=== PATIENT | female | born 1940 | race Caucasian/White ===

== ENCOUNTER → 2017-02-12 | Outpatient (CLI) | payer MEDICARE, BC ==
[~2017-02-12] MED LIST: /ALEN7SOL OR; /ONDA4TA OR; ACCU5TAB7 OR; AMBI5TAB OR; ASPI325T OR; CALCCHW12 OR; CARI350T OR; CLAR5CHW OR; COENZYME Q10 OR; CORE12.5 OR; CRES20TA PO; DEXI; DEXILANT OR; FERR325T3 PO; GLUC850T OR; INSULANT SC; ISOS30TA4 OR; LASI40TA OR; LEXAPRO PO; NIAS500T2 OR; SPIR25TA2 OR; SYNT75TA OR; TOPI100T OR; VIT D 2000 OR; ZANT150T OR; [UNRECOGNIZED DRUG - OTHER]
--- NOTE | 2017-02-12 14:58 | REP ---
REASON: Followup carotid arterial disease. COMPARISON: 08/22/2015 which showed less than 50% stenosis in the internal carotid artery bilaterally. Once again, there is echogenic material along the carotid arterial campbell, particularly the carotid bulb, essentially unchanged from the prior exam. Some of this echogenic material casts an acoustic shadow consistent with calcific deposition. RIGHT LEFT CCA systolic 70.8 cm/s 54.7 cm/s CCA diastolic 5.2 cm/s 7.9 cm/s ICA systolic 48.4 cm/s 59.9 cm/s ICA diastolic 10.8 cm/s 14.4 cm/s ICA/CCA ratio 0.68 1.10 Spectral wave form analysis shows mild bilateral internal carotid shadow spectral broadening status quo. Antegrade flow is seen in both vertebral arteries. IMPRESSION: Soft and calcified plaque formation again seen to cause less than 50% stenosis in the internal carotid artery bilaterally. According to the NASCET consensus criteria. Signed by Reagan Arriaza DO 02/12/2017 03:08 P
== END ==
LOC: M RAD 12:09
PROVIDERS: ATTEND Physician Assistant Medical
DX: I65.23 Occlusion and stenosis of bilateral carotid arteries (principal)

== ENCOUNTER → 2017-05-26 | Outpatient (REF) | payer MEDICARE, BC ==
[2017-05-29 00:07] LABS: Lyme Disease IgG/IgM Antibodie <0.91 ISR (0.00-0.90); Lyme Disease IgM Ab Quantitati <0.80 index (0.00-0.79)
== END ==
LOC: M LABDRAW1 15:47
PROVIDERS: ATTEND Orthopaedic Surgery
DX: S80.01XA Contusion of right knee, initial encounter (principal); X58.XXXA Exposure to other specified factors, initial encounter; Y92.89 Other specified places as the place of occurrence of the external cause; Y99.9 Unspecified external cause status; Y93.9 Activity, unspecified

== ENCOUNTER 2018-03-12 19:10 | Emergency (ER) | payer MEDICARE, BC ==
[2018-03-12] MEDS: OXYCODONE/APAP 5MG/325MG(BULK FOR ED) 1 TABLET PO (21:35)
[2018-03-12] MEDS: PERCOCET 5MG/325MG TAB PO (21:35)
== END 2018-03-12 22:42 | disposition home or self-care (01) ==
LOC: M ED 19:10
DX: S42.202A Unspecified fracture of upper end of left humerus, initial encounter for closed fracture (principal); S80.01XA Contusion of right knee, initial encounter; S50.311A Abrasion of right elbow, initial encounter; S80.211A Abrasion, right knee, initial encounter; W01.10XA Fall on same level from slipping, tripping and stumbling with subsequent striking against unspecified object, initial encounter; Y92.099 Unspecified place in other non-institutional residence as the place of occurrence of the external cause; Y93.9 Activity, unspecified; Y99.9 Unspecified external cause status; I50.9 Heart failure, unspecified; I25.2 Old myocardial infarction; E11.9 Type 2 diabetes mellitus without complications; I10 Essential (primary) hypertension; G43.909 Migraine, unspecified, not intractable, without status migrainosus; E78.5 Hyperlipidemia, unspecified; K21.9 Gastro-esophageal reflux disease without esophagitis; K31.84 Gastroparesis; Z87.891 Personal history of nicotine dependence; Z79.82 Long term (current) use of aspirin; Z79.84 Long term (current) use of oral hypoglycemic drugs; Z79.899 Other long term (current) drug therapy; Z88.1 Allergy status to other antibiotic agents; Z88.8 Allergy status to other drugs, medicaments and biological substances
CPT/HCPCS: 73030

== ENCOUNTER → 2019-06-29 | Outpatient (REF) | payer MEDICARE, BC ==
[~2019-06-29] MED LIST changes: -/ONDA4TA OR; +ACET-716 PO; +ASPI81TA26 PO; +CLOP75TA2; +CO Q100C10 PO; +DEXI60CA2; +ESCI20TA; +FENO160T10; +GABA-1171; +GABA-843 PO; +LEVO112T2; +LEXA1TAB PO; -LEXAPRO PO; +MAGN500T5 PO; +METF850T4; +NITR-67; +ONDA-1 OR; +PERC5TAB12 PO; +VICT18IN; +areds 2
[2019-06-29 18:18] LABS: APPEARANCE, URINE CLEAR (CLEAR); BACTERIA, URINE AUTO NEGATIVE (NEGATIVE); BILIRUBIN, URINE AUTO NEGATIVE (NEGATIVE); BLOOD, URINE BLOOD NEGATIVE (NEGATIVE); COLOR, URINE YELLOW (YELLOW); GLUCOSE, URINE (UA) AUTO NEGATIVE (NEGATIVE); KETONE, URINE AUTO TRACE mg/dL (NEGATIVE); LEUKOCYTE ESTERASE, URINE AUTO TRACE (NEGATIVE); NITRITE, URINE AUTO NEGATIVE (NEGATIVE); PROTEIN, URINE AUTO NEGATIVE (NEGATIVE); RBC, URINE AUTO 1 /HPF (0-3); SPECIFIC GRAVITY URINE AUTO 1.017 (1.002-1.035); SQUAMOUS EPITHELIAL CELL UR AU 0 /HPF (0-6); UROBILINOGEN, URINE AUTO 0.2 mg/dL (0.0-2.0); WBC, URINE AUTO 3 /HPF (0-3)
== END ==
LOC: M SMT 17:11
PROVIDERS: ATTEND Nurse Practitioner Family
DX: N39.0 Urinary tract infection, site not specified (principal); R32 Unspecified urinary incontinence
CPT/HCPCS: 51798; 81001; 87086; G0463

== ENCOUNTER → 2019-07-06 | Outpatient (REF) | payer MEDICARE, BC ==
[2019-07-06 19:27] LABS: APPEARANCE, URINE CLEAR (CLEAR); BACTERIA, URINE AUTO 1+ (NEGATIVE); BILIRUBIN, URINE AUTO NEGATIVE (NEGATIVE); BLOOD, URINE BLOOD NEGATIVE (NEGATIVE); COLOR, URINE YELLOW (YELLOW); GLUCOSE, URINE (UA) AUTO NEGATIVE (NEGATIVE); KETONE, URINE AUTO NEGATIVE (NEGATIVE); LEUKOCYTE ESTERASE, URINE AUTO NEGATIVE (NEGATIVE); NITRITE, URINE AUTO NEGATIVE (NEGATIVE); PROTEIN, URINE AUTO NEGATIVE (NEGATIVE); RBC, URINE AUTO 2 /HPF (0-3); SPECIFIC GRAVITY URINE AUTO 1.017 (1.002-1.035); SQUAMOUS EPITHELIAL CELL UR AU 0 /HPF (0-6); UROBILINOGEN, URINE AUTO 0.2 mg/dL (0.0-2.0); WBC, URINE AUTO 3 /HPF (0-3)
== END ==
LOC: M SMT 17:05
PROVIDERS: ATTEND Nurse Practitioner Family
DX: N39.0 Urinary tract infection, site not specified (principal); R32 Unspecified urinary incontinence

== ENCOUNTER → 2020-03-23 | Outpatient (CLI) | payer MEDICARE, BC ==
[2020-03-29 12:15] LABS: ANCA-ATYPICAL <1:20 titer (Neg:<1:20); ANTI DS-DNA AB Negative (Negative); ANTINUCLEAR ANTIBODIES DIRECT Negative (Negative); ASPERGILLUS FUMIGATUS AB Negative (Negative); AUREOBASIDIUM PULLULANS Negative (Negative); CYTOPLASMIC NEUTROP AB ANCA-C <1:20 titer (Neg:<1:20); MICROPOLYSPORA FAENI AB Negative (Negative); PERINUCLEAR AB ANCA-P <1:20 titer (Neg:<1:20); PIGEON SERUM AB Negative (Negative); RNP ANTIBODIES <0.2 AI (0.0-0.9); SJOGREN'S ANTI SS-A <0.2 AI (0.0-0.9); SJOGREN'S ANTI SS-B <0.2 AI (0.0-0.9); SMITH ANTIBODIES <0.2 AI (0.0-0.9); THERMOACTINOMYCES SACCHARI Negative (Negative); THERMOACTINOMYCES VULGARIS Negative (Negative)
== END ==
LOC: M PLALAB 11:50
PROVIDERS: ATTEND Internal Medicine Pulmonary Disease
DX: R91.8 Other nonspecific abnormal finding of lung field (principal)

== ENCOUNTER → 2020-06-27 | Outpatient (REF) | payer MEDICARE, BC ==
[2020-06-27 14:53] LABS: CALCIUM LEVEL 8.3 MG/DL (8.8-10.2); CREATININE FOR GFR 1.32 MG/DL (0.55-1.30); GLOMERULAR FILTRATION RATE 41.4 (>39); POTASSIUM SERUM 4.8 MEQ/L (3.5-5.1)
== END ==
LOC: M PLALAB 12:10
PROVIDERS: ATTEND Physician Assistant
DX: I50.42 Chronic combined systolic (congestive) and diastolic (congestive) heart failure (principal)

== ENCOUNTER → 2021-02-09 | Outpatient (CLI) | payer MEDICARE, BC ==
[~2021-02-09] MED LIST changes: -ESCI20TA; +ESCI20TA16; +GABA-282 PO; -GABA-843 PO
--- NOTE | 2021-02-09 13:14 | REPPI ---
INDICATION: ABNORMAL LUNG FINDING. COMPARISON: 01/17/2016 the latest prior TECHNIQUE: PA and lateral FINDINGS: Since the last examination, a dual chamber bipolar pacemaker device has been placed. The leads appear appropriate and contiguous. The cardiomediastinal silhouette is essentially unchanged. Note is again made of previous median sternotomy. The heart is not enlarged. There is chronic left CP angle blunting. No acute patchy parenchymal opacities or pleural effusions have developed. There is a lower thoracic vertebral body compression deformity and when compared to the latest prior lateral view of the chest which is dated 01/17/2016 this appears stable. IMPRESSION: No acute cardiopulmonary disease. Findings as described above. <Electronically signed by Reagan Arriaza > 02/09/21 [id number]
== END ==
LOC: M PLAIMG 12:52
PROVIDERS: ATTEND Internal Medicine Pulmonary Disease
DX: R91.8 Other nonspecific abnormal finding of lung field (principal)

== ENCOUNTER → 2021-04-02 | Outpatient (CLI) | payer MEDICARE, BC ==
--- NOTE | 2021-04-02 16:42 | REPVR ---
PROCEDURE INFORMATION: Exam: CT Head Without Contrast Exam date and time: 04/02/2021 3:54 PM Age: 80 years old Clinical indication: Pain; Headache; Additional info: Repeated falls, cervicalgia, other cerb infarc TECHNIQUE: Imaging protocol: Computed tomography of the head without contrast. Radiation optimization: All CT scans at this facility use at least one of these dose optimization techniques: automated exposure control; mA and/or kV adjustment per patient size (includes targeted exams where dose is matched to clinical indication); or iterative reconstruction. COMPARISON: CT Head without contrast 03/12/2018 7:52 PM FINDINGS: Brain: There is no evidence of intracranial bleed. There is moderate diffuse atrophy. There is greater atrophy the left frontal lobe and right occipital lobe. The hardy-white differentiation appears preserved. Cerebral ventricles: No ventriculomegaly. Paranasal sinuses: Clear paranasal sinuses. Mastoid air cells: Clear mastoid air cells. Bones/joints: There is no evidence of acute fracture. Soft tissues: Unremarkable. IMPRESSION: Moderate atrophy. Electronically signed by: Chirag Egan On 04/02/2021 16:42:15 PM
--- NOTE | 2021-04-02 16:50 | REPVR ---
PROCEDURE INFORMATION: Exam: CT Cervical Spine Without Contrast Exam date and time: 04/02/2021 3:54 PM Age: 80 years old Clinical indication: Neck pain; Additional info: Repeated falls, cervicalgia, other cerb infarc TECHNIQUE: Imaging protocol: Computed tomography images of the cervical spine without contrast. Radiation optimization: All CT scans at this facility use at least one of these dose optimization techniques: automated exposure control; mA and/or kV adjustment per patient size (includes targeted exams where dose is matched to clinical indication); or iterative reconstruction. COMPARISON: No relevant prior studies available. FINDINGS: Vertebrae: The cervical vertebra and facet joints appear in alignment. The there is no evidence of fracture. There is a screw and plate device C5-C6 appearing intact. There is a moderate posterior disc osteophyte C4-C5 causing moderate impression on the Soft tissues: There is no evidence of soft tissue swelling. Lungs: Lung apices are normal. IMPRESSION: No evidence of fracture. Electronically signed by: Chirag Egan On 04/02/2021 16:50:49 PM
== END ==
LOC: M RAD 15:34
PROVIDERS: ATTEND Physician Assistant Medical
DX: M54.2 Cervicalgia (principal); M47.892 Other spondylosis, cervical region; R29.6 Repeated falls

== ENCOUNTER → 2021-09-17 | Outpatient (REF) | payer MEDICARE, BC ==
[~2021-09-17] MED LIST changes: +AJOV225I SC; +BISO5TAB14 PO; +CARV6.25 PO; +COLA100C5 PO; +DEXI60CA2 PO; +ENTR1TAB PO; +FENO160T10 PO; +GABA-1171 PO; +LOVE1INJ SC; +METF-838 PO; +METF850T4 PO; +METO5TAB2 PO; +MIRA1POW3 PO; +MYRB50TA PO; +PERCOCET PO; +PLAV1TAB2 PO; +PRESCAP PO; +ROSU20TA5 PO; +SENN18TA PO; +SPIR-10 PO; +SYNT112T2 PO; +TOPI25TA10 PO; +TORS20TA2 PO; +TRAM50TA2 PO; +VICT18IN2 SC; +ZOLO100T PO
[2021-09-17 14:06] LABS: APPEARANCE, URINE MANUAL CLOUDY (CLEAR); COLOR, URINE MANUAL ORANGE (YELLOW); GLUCOSE, URINE (UA) MANUAL OBSCURED mg/dL (NEGATIVE); PROTEIN, URINE MANUAL OBSCURED mg/dL (NEGATIVE)
[2021-09-17 14:07] LABS: BILIRUBIN, URINE MANUAL OBSCURED (NEGATIVE); BLOOD URINE MANUAL POSITIVE (NEGATIVE); KETONE, URINE MANUAL OBSCURED mg/dL (NEGATIVE); LEUKOCYTE ESTERASE, URINE MAN POSITIVE (NEGATIVE); NITRITE, URINE MANUAL OBSCURED (NEGATIVE); UROBILINOGEN, URINE MANUAL OBSCURED mg/dl (NORMAL)
[2021-09-17 14:16] LABS: BACTERIA, URINE LARGE AMOUNT; HYALINE CAST, URINE NONE SEEN /lpf (0-1); SQUAMOUS EPITHELIAL CELL URINE NONE SEEN /hpf (SMALL AMT)
== END ==
LOC: M SMT 13:16
PROVIDERS: ATTEND Nurse Practitioner Women's Health
DX: R30.0 Dysuria (principal)

== ENCOUNTER → 2021-09-26 | Outpatient (REF) | payer MEDICARE, BC ==
[2021-09-26 13:53] LABS: APPEARANCE, URINE CLEAR (CLEAR); BACTERIA, URINE AUTO NEGATIVE (NEGATIVE); BILIRUBIN, URINE AUTO NEGATIVE (NEGATIVE); BLOOD, URINE BLOOD NEGATIVE (NEGATIVE); COLOR, URINE YELLOW (YELLOW); GLUCOSE, URINE (UA) AUTO NEGATIVE (NEGATIVE); KETONE, URINE AUTO TRACE mg/dL (NEGATIVE); LEUKOCYTE ESTERASE, URINE AUTO NEGATIVE (NEGATIVE); NITRITE, URINE AUTO NEGATIVE (NEGATIVE); PROTEIN, URINE AUTO NEGATIVE (NEGATIVE); RBC, URINE AUTO 0 /HPF (0-3); SPECIFIC GRAVITY URINE AUTO 1.024 (1.002-1.035); SQUAMOUS EPITHELIAL CELL UR AU 0 /HPF (0-6); WBC, URINE AUTO 2 /HPF (0-3)
== END ==
LOC: M SMT 13:18
PROVIDERS: ATTEND Nurse Practitioner Women's Health
DX: R30.0 Dysuria (principal)

== ENCOUNTER → 2021-10-02 | Outpatient (CLI) | payer MEDICARE, BC | LOC: M PLAIMG 11:09 | PROVIDERS: ATTEND Physician Assistant | DX: S72.115A Nondisplaced fracture of greater trochanter of left femur, initial encounter for closed fracture (principal); M85.852 Other specified disorders of bone density and structure, left thigh ==

== ENCOUNTER 2021-10-05 09:08 | Inpatient (IN) | payer MEDICARE, BC ==
[~2021-10-05] VITALS: Ht 154.9 cm; Wt 57.2 kg
[~2021-10-05 09:08] MED LIST changes: -AJOV225I SC; -BISO5TAB14 PO; -CARV6.25 PO; -COLA100C5 PO; -DEXI60CA2 PO; -ENTR1TAB PO; -FENO160T10 PO; -GABA-1171 PO; -LOVE1INJ SC; -METF-838 PO; -METF850T4 PO; -METO5TAB2 PO; -MIRA1POW3 PO; -MYRB50TA PO; -PERCOCET PO; -PLAV1TAB2 PO; -PRESCAP PO; -ROSU20TA5 PO; -SENN18TA PO; -SPIR-10 PO; -SYNT112T2 PO; -TOPI25TA10 PO; -TORS20TA2 PO; -TRAM50TA2 PO; -VICT18IN2 SC; -ZOLO100T PO
[2021-10-05] MEDS ORDERED: ONDANSETRON 4MG/2ML VIAL IV ONE (09:50)
[2021-10-05] MEDS ORDERED: NS 1,000 ML IV SCH (09:50)
[2021-10-05] MEDS ORDERED: MORPHINE 2 MG/ML 1ML VIAL (J2270) IV PRN (09:50)
[2021-10-05 10:33] LABS: BASO % 0.4 % (0.0-1.0); EOS # 0.1 10^3/uL (0.0-0.5); EOS % 1.1 % (0.0-3.0); HEMATOCRIT 38.3 % (36.0-47.0); HEMOGLOBIN 12.1 g/dl (12.0-15.5); LYMPH # 0.6 10^3/uL (1.5-5.0); MEAN CORPUSCULAR HEMOGLOBIN 31.3 pg (27.0-33.0); MEAN CORPUSCULAR HGB CONC 31.6 g/dl (32.0-36.5); MONO # 0.5 10^3/uL (0.0-0.8); MONO % 4.6 % (2.0-8.0); NEUTROPHILS # 8.5 10^3/uL (1.5-8.5); NEUTROPHILS % 87.4 % (36.0-66.0); PLATELET COUNT, AUTOMATED 256 10^3/uL (150-450); RED BLOOD COUNT 3.87 10^6/uL (4.00-5.40); WHITE BLOOD COUNT 9.7 10^3/uL (4.0-10.0)
[2021-10-05 10:57] LABS: ALBUMIN 2.8 GM/DL (3.2-5.2); BILIRUBIN,DIRECT 0.1 MG/DL (0.0-0.2); BILIRUBIN,TOTAL 0.5 MG/DL (0.2-1.0); CALCIUM LEVEL 8.6 MG/DL (8.8-10.2); CREATININE FOR GFR 1.23 MG/DL (0.55-1.30); GLOMERULAR FILTRATION RATE 44.7 (>32); POTASSIUM SERUM 5.1 MEQ/L (3.5-5.1)
[2021-10-05 11:17] LABS: RSV AMPLIFICATION NEGATIVE (NEGATIVE)
[2021-10-05] MEDS ORDERED: BISO5TAB14 PO (11:46)
[2021-10-05] MEDS ORDERED: ZOLO100T PO (11:46)
[2021-10-05] MEDS ORDERED: TORS20TA2 PO (11:46)
[2021-10-05] MEDS ORDERED: ENTR1TAB PO (11:46)
[2021-10-05] MEDS ORDERED: AJOV225I SC (11:46)
[2021-10-05] MEDS ORDERED: MYRB50TA PO (11:46)
[2021-10-05] MEDS ORDERED: GABA-1171 PO (11:46)
[2021-10-05] MEDS ORDERED: METO5TAB2 PO (11:46)
[2021-10-05] MEDS ORDERED: VICT18IN2 SC (11:46)
[2021-10-05] MEDS ORDERED: ROSU20TA5 PO (11:46)
[2021-10-05] MEDS ORDERED: SPIR-10 PO (11:46)
[2021-10-05] MEDS ORDERED: SYNT112T2 PO (11:46)
[2021-10-05] MEDS ORDERED: DEXI60CA2 PO (11:46)
[2021-10-05] MEDS ORDERED: PLAV1TAB2 PO (11:46)
[2021-10-05] MEDS ORDERED: TRAM50TA2 PO (11:46)
[2021-10-05] MEDS ORDERED: TOPI25TA10 PO (11:46)
[2021-10-05] MEDS ORDERED: METF850T4 PO (11:46)
--- NOTE | 2021-10-05 13:01 | HPEPDOC ---
[facility] Medical History & Physical Date of Admission Oct 05, 2021 Date of Service: Oct 05, 2021 Attending Physician: Lynette Reyes MD History and Physical CHIEF COMPLAINT: Increasing left hip pain HISTORY OF PRESENT ILLNESS: Patient is an 81-year-old female with past medical history of coronary artery disease status post CABG, congestive heart failure, chronic hypoxic respiratory failure on home oxygen, TIA, diabetes mellitus, depression, iron deficiency anemia, hyperlipidemia, peripheral neuropathy, hypothyroidism who presented to [facility] emergency room with a chief complaint of increased left hip and leg pain. The patient states on 09/22/2021 she experienced a mechanical fall at home and immediately felt left hip and leg pain. After the weekend she presented to [facility] orthopedic office 09/27/21 and was seen by MAXIME Montes who ordered CT of the left hip. On 10/02/21 CT was done showing a subtle nondisplaced fracture involving the superior aspect of the greater trochanter, underlying osteopenia and moderate/early advanced OA degenerative changes to the hip joint. According to the patient she was told surgery was not an option and conservative management was chosen. She left the clinic and returned home with her . She had another telephone visit with orthopedic surgery on 10/04/21. Since her repeat evaluation by orthopedic surgery, the patient has c ontinue to only move very little, states she cannot apply any weight to the left lower extremity without significant pain. She denies chest pain, increased shortness of breath from baseline, fevers, chills, nausea, increased swelling of the left lower extremity, nausea/vomiting/diarrhea. Upon her arrival to the emergency room, vital signs were stable and she was on 2 L nasal cannula which is her baseline oxygen requirement. She had limited range of motion of the left hip with pain to palpation of the area around the greater trochanter of the left hip. I discussed the case with Fady Milian who was very familiar with the case and was able to give us the remainder of the background information. Since she is not a surgical candidate he was also able to give me the suggestion for activity orders. The patient was admitted under my service for nondisplaced greater trochanteric fracture s/p fall, requiring further evaluation by physical therapy and likely rehabilitation. REVIEW OF SYSTEMS: CONSTITUTIONAL: Denies lack of energy, unexplained weight gain or weight loss, loss of appetite, fever, night sweats EYES: Denies eye drainage, eye pain, visual changes, dry/irritated eye EARS, NOSE, MOUTH, THROAT: Denies difficulty hearing, ringing in ears, mouth sores, loose teeth, sore throat, facial numbness or pain NECK: Denies swollen glands CARDIOVASCULAR: Denies irregular heartbeat, racing heart, chest pains, swelling of feet or legs, pain in legs with walking RESPIRATORY: Denies night sweats, wheezing, sputum production, oxygen at home, coughing up blood, cough lasting > 1 month GASTROINTESTINAL: Denies abdominal pain, constipation, bloody stool, diarrhea, heartburn, nausea, vomiting GENITOURINARY: Denies painful urination, bloody urine, frequent urination, urgency, leaking urine, impotence MUSCULOSKELETAL: Denies leg swelling INTEGUMENTARY: Denies rash, itching, new skin lesion, change in existing skin lesion, hair loss or increase, breast changes. NEUROLOGICAL: Denies headaches, dizziness, difficulty walking, numbness or tingling PSYCHIATRIC: Denies depression, anxiety, recurrent bad thoughts, mood swings, hallucinations PAST MEDICAL HISTORY: Coronary artery disease status post CABG Congestive heart failure Chronic hypoxic respiratory failure on 2 L NC ATC TIA Diabetes mellitus Depression Iron deficiency anemia Hyperlipidemia Peripheral neuropathy Hypothyroidism PAST SURGICAL HISTORY: Tonsillectomy Bilateral cataract surgeries, 1993 1998 Spine surgery Tubal ligation Hysterectomy Coronary artery stent placement 1996 CABG 1997 Left carpal tunnel release and ulnar nerve transposition 12/2011 Right carpal tunnel release and ulnar nerve transposition 05/2012 Right knee surgery FAMILY HISTORY: No significant family history SOCIAL HISTORY: History of smoking 3 packs/day for over 30 years. Unknown as to when she quit. Denies alcohol or illicit drug use. Primary care provider is Kahlil Clayton. She follows with a credit risk analytics manager out of town. At baseline she uses a cane and a walker at times. She lives with her whom she helps care for due to his dementia. She states she has a good support system with her son and daughter sometimes helping her at home. ALLERGIES: Please see below. HOME MEDICATIONS: Please see below. PHYSICAL EXAMINATION: VS: 99.2, 92, 18, 115/57, 97% on 2 L which is patient's baseline oxygen requirem ent CONSTITUTIONAL: No acute distress, resting comfortably in bed, AAO x 3 EYES: PERRLA, EOM intact HENT, MOUTH: Normocephalic, atraumatic, moist mucous membranes, nasal cannula in place NECK: SUPPLE, no JVD, no lymphadenopathy, no carotid bruit CV: Regular rate and rhythm, paced S1S2 normal, no murmurs/rubs/gallops RESPIRATORY: Clear to auscultation bilaterally, no rales/rhonchi/wheezes GI: BS positive in 4 quadrants, soft, nontender, nondistended, no rebound or guarding, no organomegaly : Deferred MUSCULOSKELETAL: Thin extremities, decreased range of motion of left hip, a small area of bruising on the left flank. Point tenderness over greater trochanteric area. No cyanosis, clubbing, swelling, joint deformity, extremity edema INTEGUMENTARY: Intact, no rashes, no lesions, no erythema NEUROLOGIC: Cranial Nerves II-XII are intact, no focal deficits, gait not tested PSYCHIATRIC: Mood and affect are normal LABORATORY DATA: Please see below IMAGING: CT left hip 10/02/21: IMPRESSION: 1. Subtle nondisplaced fracture involving the superior aspect of the greater trochanter. 2. Underlying osteopenia and moderate/early advanced osteoarthritic degenerative changes to the hip joint. ASSESSMENT: Patient is an 81-year-old female PLAN: Nondisplaced left greater trochanter fracture -Nonsurgical per orthopedic surgery, [facility] -CT left hip above -Suggestions for activity: WBAT with walker, bed to chair-transfers. No strength training. No precautions on that leg. -After 6 weeks, f/u with [facility] -PT/OT, pain control, ASA per ortho for anticoagulation -If any questions about activity orders, please call Fady Milian [phone]. Coronary artery disease status post CABG -Stable, no chest pain -C/w home medications Congestive heart failure -Currently not in exacerbation -C/w home meds Chronic hypoxic respiratory failure on 2 L NC ATC -Patient states this is 2/2 to her heart issues -No documented hx of COPD -albuterol PRN TIA -No deficits -C/w ASA, satin Diabetes mellitus -Holding PO metformin -ISS, FS AC/HS, consistent carb diet, hypoglycemic protocol Depression -C/w home med Iron deficiency anemia -CBC at baseline -CBC regularly Hyperlipidemia -statin Peripheral neuropathy -gabapentin Hypothyroidism -levothyroxine DVT PX -asa, tEDS/SCD DISPOSITION: Admitted as acute inpatient. PT/OT. Vital Signs Vital Signs Date Time Temp Pulse Resp B/P (MAP) Pulse Ox O2 Delivery O2 Flow Rate FiO2 10/05/21 09:09 99.2 92 18 115/57 (76) 97 Nasal Cannula 2.0 Laboratory Data Labs 24H Laboratory Tests 2 10/05/21 09:46: Immature Granulocyte % (Auto) 0.5, Neutrophils (%) (Auto) 87.4H, Lymphocytes (%) (Auto) 6.0L, Monocytes (%) (Auto) 4.6, Eosinophils (%) (Auto) 1.1, Basophils (%) (Auto) 0.4, Neutrophils # (Auto) 8.5, Lymphocytes # (Auto) 0.6L, Monocytes # (Auto) 0.5, Eosinophils # (Auto) 0.1, Basophils # (Auto) 0.0, Nucleated Red Blood Cells % (auto) 0.0, Anion Gap 11, Glomerular Filtration Rate 44.7, Calcium Level 8.6L, Total Bilirubin 0.5, Direct Bilirubin 0.1, Aspartate Amino Transf (AST/SGOT) 35, Alanine Aminotransferase (ALT/SGPT) 33, Alkaline Phosphatase 101, Total Protein 6.0L, Albumin 2.8L, Albumin/Globulin Ratio 0.9L 10/05/21 10:05: Coronavirus (COVID-19)(PCR) NEGATIVE, Influenza Type A (RT-PCR) NEGATIVE, Influenza Type B (RT-PCR) NEGATIVE, Respiratory Syncytial Virus (PCR) NEGATIVE CBC/BMP Laboratory Tests 10/05/21 09:46 Home Medications Scheduled Aspirin (Aspirin EC) 81 Mg Tab, 81 MG PO DAILY Bisoprolol Fumarate (Bisoprolol Fumarate) 5 Mg Tablet, 5 MG PO DAILY Clopidogrel Bisulfate (Plavix) 75 Mg Tablet, 75 MG PO DAILY Dexlansoprazole (Dexilant) 60 Mg bp, 60 MG PO DAILY Ferrous Sulfate (Ferrous Sulfate) 325 Mg Tab, 325 MG PO BID Fremanezumab-Vfrm (Ajovy) 225 Mg/1.5 Ml Syringe, 225 MG SC QMONTH Gabapentin (Gabapentin) 100 Mg Capsule, 200 MG PO QHS Levothyroxine Sodium (Synthroid) 112 Mcg Tablet, 112 MCG PO DAILY Liraglutide (Victoza 3-Tre) 0.6 Mg/0.1 Ml Pen.injctr, 1.8 MG SC DAILY Loratadine (Children's Claritin) 5 Mg Chw, 10 MG OR DAILY Magnesium Oxide (Magnesium) 500 Mg Tab, 500 MG PO QHS Metformin HCl (Metformin HCl) 850 Mg Tablet, 850 MG PO TID Metoclopramide HCl (Metoclopramide HCl) 5 Mg Tablet, 5 MG PO DAILY Mirabegron (Myrbetriq) 50 Mg Tab.er.24h, 50 MG PO DAILY Rosuvastatin Calcium (Rosuvastatin Calcium) 20 Mg Tablet, 20 MG PO QHS Sacubitril/Valsartan (Entresto 24 mg-26 mg Tablet) 1 Each Tablet, 1 TAB PO DAILY Sertraline Hcl (Zoloft) 100 Mg Tablet, 100 MG PO DAILY Spironolactone (Spironolactone) 25 Mg Tablet, 25 MG PO DAILY Topiramate (Topiramate) 25 Mg Tablet, 25 MG PO BID Torsemide (Torsemide) 20 Mg Tablet, 40 MG PO DAILY Scheduled PRN Tramadol HCl (Tramadol HCl) 50 Mg Tablet, 50 MG PO Q6H PRN for PAIN LEVEL 3-5 Miscellaneous Medications Ubidecarenone/Vit E Acet (Co Q-10 100 mg Softgel) 100 Mg Cap, 100 MG PO Allergies Coded Allergies: exenatide (Verified Allergy, Unknown, 10/05/21) Tetracyclines (Verified Adverse Reaction, Unknown, 10/05/21) nv atorvastatin (Verified Adverse Reaction, Unknown, 10/05/21) muscle pain metoclopramide (Verified Adverse Reaction, Unknown, 10/05/21) tremor A-FIB/CHADSVASC A-FIB History Current/History of A-Fib/PAF?: No Current PO Anticoag Therapy: No Age/Risk Factor Scoring CHADSVASC: CHADSVASC Response (Comments) Value Age Risk Factor Age >/= 75 years old 2 Gender Risk Factor Female 1 Hx of CHF Yes 1 Hx of HTN Yes 1 Hx of Stroke/TIA/or VTE Yes 2 Hx of Diabetes Yes 1 Hx of Vascular Disease Yes 1 Total 9 Treatment Other anticoagulant ordered: Lynette Mcpherson MD Oct 05, 2021 13:01
[2021-10-05] MEDS ORDERED: GLUCAGON INJ 1MG VIAL SC PRN (13:05)
[2021-10-05] MEDS ORDERED: PERCOCET 5MG/325MG TAB PO PRN (13:05)
[2021-10-05] MEDS ORDERED: DEXTROSE 50% 50 ML SYRINGE IV PRN (13:05)
[2021-10-05] MEDS ORDERED: GLUCOSE 4GM CHEW TABLET PO PRN (13:05)
[2021-10-05] MEDS ORDERED: PRESCAP PO (13:33)
[2021-10-05] MEDS ORDERED: FENO160T10 PO (13:33)
[2021-10-05] MEDS ORDERED: CARV6.25 PO (13:33)
[2021-10-05] MEDS ORDERED: HOME MED LIST COMPLETE! XX SCH (13:35)
[2021-10-05] MEDS: HumaLOG INSULIN (NovoLOG) PER UNIT SC SCH ×2 (13:44→16:47)
[2021-10-05 14:40] VITALS: BP 141/92
[2021-10-05] MEDS ORDERED: traMADol 50 MG TAB PO PRN (16:05)
[2021-10-05] MEDS ORDERED: TORSEMIDE 20 MG TAB PO PRN (16:05)
[2021-10-05] MEDS: ENOXAPARIN 40MG/0.4ML SYRINGE (J1650 PER 10MG) SC SCH (16:46)
[2021-10-05] MEDS: OCUVITE 1 TAB PO SCH (20:55)
[2021-10-05] MEDS: DOCUSATE SODIUM 100MG CAPSULE PO SCH (20:56)
[2021-10-05] MEDS: TOPIRAMATE (TopAMAX) 25 MG TAB PO SCH (20:56)
[2021-10-05] MEDS: ROSUVASTATIN 10 MG TAB (CRESTOR) PO SCH (20:56)
[2021-10-05] MEDS: GABAPENTIN 100 MG CAP PO SCH (20:56)
[2021-10-05] MEDS: CARVedilol 6.25 MG TAB PO SCH (20:57)
[2021-10-05] MEDS ORDERED: ASPIRIN 81MG ENTERIC TABLET PO SCH (21:00)
[2021-10-05] MEDS ORDERED: HumaLOG INSULIN (NovoLOG) PER UNIT SC SCH (21:00)
[2021-10-05 22:00] VITALS: BP 144/72
--- NOTE | 2021-10-05 22:07 | ECGEPIP ---
[facility] - ED Test Date: 2021-10-05 Pat Name: ANA MARÍA AL Department: Room: - Gender: Female Wardrobe Attendant: Poornima MULTANI : 1940 Requested By: Zamzam Lloyd Order Number: [id number] Reading MD: Endy Turk Measurements Intervals Crosby Rate: 91 P: 53 MO: 152 QRS: -65 QRSD: 116 T: 104 QT: 384 QTc: 472 Interpretive Statements Atrial-sensed ventricular-paced rhythm Biventricular pacemaker detected Comparison tracing not on file Electronically Signed on 10-05-2021 22:07:51 EST by Endy Turk
[2021-10-06] MEDS: LEVOTHYROXINE 112MCG TABLET (0.112MG) PO SCH (05:41)
[2021-10-06] MEDS: MIRALAX *UNIT DOSE* 17GM PACKET PO PRN (05:41)
[2021-10-06] MEDS: PERCOCET 5MG/325MG TAB PO PRN (05:42)
[2021-10-06 06:00] VITALS: BP 143/70
[2021-10-06 07:29] LABS: HEMATOCRIT 32.9 % (36.0-47.0); HEMOGLOBIN 10.1 g/dl (12.0-15.5); MEAN CORPUSCULAR HEMOGLOBIN 30.9 pg (27.0-33.0); MEAN CORPUSCULAR HGB CONC 30.7 g/dl (32.0-36.5); MEAN CORPUSCULAR VOLUME 100.6 fl (80.0-96.0); PLATELET COUNT, AUTOMATED 212 10^3/uL (150-450); RED BLOOD COUNT 3.27 10^6/uL (4.00-5.40); WHITE BLOOD COUNT 5.5 10^3/uL (4.0-10.0)
[2021-10-06 08:01] LABS: ALBUMIN 2.2 GM/DL (3.2-5.2); ALT/SGPT 32 U/L (12-78); BILIRUBIN,TOTAL 0.3 MG/DL (0.2-1.0); BLOOD UREA NITROGEN 25 MG/DL (7-18); CALCIUM LEVEL 8.4 MG/DL (8.8-10.2); CARBON DIOXIDE LEVEL 26 MEQ/L (21-32); CHLORIDE LEVEL 111 MEQ/L (98-107); CREATININE FOR GFR 0.88 MG/DL (0.55-1.30); GLOMERULAR FILTRATION RATE > 60.0 (>32); GLUCOSE, FASTING 219 MG/DL (70-100); POTASSIUM SERUM 4.5 MEQ/L (3.5-5.1); SODIUM LEVEL 142 MEQ/L (136-145)
[2021-10-06] MEDS: HumaLOG INSULIN (NovoLOG) PER UNIT SC SCH ×3 (08:29→17:51)
[2021-10-06] MEDS: ENOXAPARIN 40MG/0.4ML SYRINGE (J1650 PER 10MG) SC SCH (08:29)
[2021-10-06] MEDS: ENTRESTO 24-26MG TABLET (SACUBITRIL/VALSARTAN) PO SCH (08:30)
[2021-10-06] MEDS: ASPIRIN 81MG ENTERIC TABLET PO SCH (08:30)
[2021-10-06] MEDS: FENOFIBRATE 145MG TABLET (TRICOR) PO SCH (08:30)
[2021-10-06] MEDS: bisoproloL fumarate 5 MG TAB PO SCH (08:31)
[2021-10-06] MEDS: OCUVITE 1 TAB PO SCH ×2 (08:31→20:54)
[2021-10-06] MEDS: DOCUSATE SODIUM 100MG CAPSULE PO SCH ×2 (08:31→20:55)
[2021-10-06] MEDS: SPIRONOLACTONE 25 MG TAB PO SCH (08:32)
[2021-10-06] MEDS: CLOPIDOGREL 75 MG TAB PO SCH (08:32)
[2021-10-06] MEDS: CARVedilol 6.25 MG TAB PO SCH ×2 (08:33→20:56)
[2021-10-06] MEDS: SERTRALINE 100 MG TAB PO SCH (08:33)
[2021-10-06] MEDS: TOPIRAMATE (TopAMAX) 25 MG TAB PO SCH ×2 (08:33→20:55)
--- NOTE | 2021-10-06 13:40 | IPNPDOC ---
Date Seen The patient was seen on 10/06/21. Progress Note SUBJECTIVE: Pain is uncontrolled, modified pain scale this morning. Follow-up physical therapy evaluation. Patient denies chest pain, shortness of breath, fevers or chills. OBJECTIVE: PHYSICAL EXAMINATION: VS: Stable, saturating well on 2 L which is his baseline oxygen requirement CONSTITUTIONAL: No acute distress, resting comfortably in bed, AAO x 3 EYES: PERRLA, EOM intact HENT, MOUTH: Normocephalic, atraumatic, moist mucous membranes, nasal cannula in place NECK: SUPPLE, no JVD, no lymphadenopathy, no carotid bruit CV: Regular rate and rhythm, paced S1S2 normal, no murmurs/rubs/gallops RESPIRATORY: Clear to auscultation bilaterally, no rales/rhonchi/wheezes GI: BS positive in 4 quadrants, soft, nontender, nondistended, no rebound or guarding, no organomegaly : Deferred MUSCULOSKELETAL: Thin extremities, decreased range of motion of left hip, a small area of bruising on the left flank. Point tenderness over greater trochanteric area. No cyanosis, clubbing, swelling, joint deformity, extremity edema INTEGUMENTARY: Intact, no rashes, no lesions, no erythema NEUROLOGIC: Cranial Nerves II-XII are intact, no focal deficits, gait not tested PSYCHIATRIC: Mood and affect are normal LABORATORY DATA: Please see below IMAGING: CT left hip 10/02/21: IMPRESSION: 1. Subtle nondisplaced fracture involving the superior aspect of the greater trochanter. 2. Underlying osteopenia and moderate/early advanced osteoarthritic degenerative changes to the hip joint. ASSESSMENT: Patient is an 81-year-old female PLAN: Nondisplaced left greater trochanter fracture -Nonsurgical per orthopedic surgery, [facility] -CT left hip above -Suggestions for activity: WBAT with walker, bed to chair-transfers. No strength training. No precautions on that leg. -After 6 weeks, f/u with [facility] -PT/OT, pain control, ASA per ortho for anticoagulation -If any questions about activity orders, please call Fady Milian [phone]. Coronary artery disease status post CABG -Stable, no chest pain -C/w home medications Congestive heart failure -Currently not in exacerbation -C/w home meds Chronic hypoxic respiratory failure on 2 L NC ATC -Patient states this is 2/2 to her heart issues -No documented hx of COPD -albuterol PRN TIA -No deficits -C/w ASA, satin Diabetes mellitus -Holding PO metformin -ISS, FS AC/HS, consistent carb diet, hypoglycemic protocol Depression -C/w home med Iron deficiency anemia -CBC at baseline -CBC regularly Hyperlipidemia -statin Peripheral neuropathy -gabapentin Hypothyroidism -levothyroxine DVT PX -asa, tEDS/SCD DISPOSITION: Admitted as acute inpatient. PT/OT. VS, I&O, 24H, Fishbone Vital Signs/I&O Vital Signs Date Time Temp Pulse Resp B/P (MAP) Pulse Ox O2 Delivery O2 Flow Rate FiO2 10/06/21 09:00 2.0 10/06/21 08:31 83 143/70 10/06/21 06:12 18 10/06/21 06:00 96.9 95 Nasal Cannula I&O- Last 24 Hours up to 6 AM 10/06/21 06:00 Intake Total 600 ml Balance 600 ml Laboratory Data 24H LABS Laboratory Tests 2 10/05/21 13:34: Bedside Glucose (Misc Panel) 142H 10/05/21 16:52: Bedside Glucose (Misc Panel) 128H 10/05/21 20:24: Bedside Glucose (Misc Panel) 160H 10/06/21 07:02: Nucleated Red Blood Cells % (auto) 0.0, Anion Gap 5L, Glomerular Filtration Rate > 60.0, Calcium Level 8.4L, Total Bilirubin 0.3, Aspartate Amino Transf (AST/SGOT) 38H, Alanine Aminotransferase (ALT/SGPT) 32, Alkaline Phosphatase 85, Total Protein 5.0L, Albumin 2.2#L, Albumin/Globulin Ratio 0.8L 10/06/21 11:45: Bedside Glucose (Misc Panel) 75L CBC/BMP Laboratory Tests 10/06/21 07:02 Lynette Reyes MD Oct 06, 2021 13:40
[2021-10-06 14:00] VITALS: BP 140/68
[2021-10-06 14:42] LABS: INR 1.29; PARTIAL THROMBOPLASTIN TIME 32.1 SECONDS (25.9-37.0); PROTHROMBIN TIME 16.5 SECONDS (12.7-14.5)
[2021-10-06] MEDS: SENNA 8.6 MG TAB (SENOKOT) PO PRN (20:53)
[2021-10-06] MEDS: GABAPENTIN 100 MG CAP PO SCH (20:54)
[2021-10-06] MEDS: ROSUVASTATIN 10 MG TAB (CRESTOR) PO SCH (20:55)
[2021-10-06 22:00] VITALS: BP 136/72
[2021-10-07] MEDS: LEVOTHYROXINE 112MCG TABLET (0.112MG) PO SCH (05:18)
[2021-10-07] MEDS: PERCOCET 5MG/325MG TAB PO PRN ×2 (05:19→21:33)
[2021-10-07 06:00] VITALS: BP 142/72
[2021-10-07 08:01] LABS: HEMATOCRIT 32.8 % (36.0-47.0); HEMOGLOBIN 10.5 g/dl (12.0-15.5); MEAN CORPUSCULAR HEMOGLOBIN 31.5 pg (27.0-33.0); MEAN CORPUSCULAR VOLUME 98.5 fl (80.0-96.0); PLATELET COUNT, AUTOMATED 245 10^3/uL (150-450); RED BLOOD COUNT 3.33 10^6/uL (4.00-5.40); WHITE BLOOD COUNT 5.3 10^3/uL (4.0-10.0)
[2021-10-07 08:21] LABS: ALBUMIN 2.2 GM/DL (3.2-5.2); ALT/SGPT 35 U/L (12-78); BILIRUBIN,TOTAL 0.3 MG/DL (0.2-1.0); BLOOD UREA NITROGEN 23 MG/DL (7-18); CALCIUM LEVEL 8.4 MG/DL (8.8-10.2); CARBON DIOXIDE LEVEL 24 MEQ/L (21-32); CHLORIDE LEVEL 111 MEQ/L (98-107); CREATININE FOR GFR 0.84 MG/DL (0.55-1.30); GLOMERULAR FILTRATION RATE > 60.0 (>32); GLUCOSE, FASTING 167 MG/DL (70-100); POTASSIUM SERUM 4.2 MEQ/L (3.5-5.1); SODIUM LEVEL 142 MEQ/L (136-145); TOTAL PROTEIN 5.6 GM/DL (6.4-8.2)
[2021-10-07] MEDS: CLOPIDOGREL 75 MG TAB PO SCH (08:42)
[2021-10-07] MEDS: ENOXAPARIN 40MG/0.4ML SYRINGE (J1650 PER 10MG) SC SCH (08:42)
[2021-10-07] MEDS: HumaLOG INSULIN (NovoLOG) PER UNIT SC SCH ×3 (08:42→17:17)
[2021-10-07] MEDS: FENOFIBRATE 145MG TABLET (TRICOR) PO SCH (08:44)
[2021-10-07] MEDS: ENTRESTO 24-26MG TABLET (SACUBITRIL/VALSARTAN) PO SCH (08:44)
[2021-10-07] MEDS: bisoproloL fumarate 5 MG TAB PO SCH (08:45)
[2021-10-07] MEDS: DOCUSATE SODIUM 100MG CAPSULE PO SCH ×2 (08:45→21:00)
[2021-10-07] MEDS: SERTRALINE 100 MG TAB PO SCH (08:46)
[2021-10-07] MEDS: CARVedilol 6.25 MG TAB PO SCH ×2 (08:46→21:33)
[2021-10-07] MEDS: OCUVITE 1 TAB PO SCH ×2 (08:46→21:32)
[2021-10-07] MEDS: ASPIRIN 81MG ENTERIC TABLET PO SCH (08:46)
[2021-10-07] MEDS: TOPIRAMATE (TopAMAX) 25 MG TAB PO SCH ×2 (08:47→21:32)
[2021-10-07] MEDS: SPIRONOLACTONE 25 MG TAB PO SCH (08:47)
--- NOTE | 2021-10-07 13:12 | IPNPDOC ---
Date Seen The patient was seen on 10/07/21. Progress Note SUBJECTIVE: Pain is controlled, PT: Will benefit from skilled PT to improve functional mobility to a level that is safe for discharge to home with services. No acute events overnight. Patient is in good spirits and denies chest pain, shortness of breath, fevers or chills. OBJECTIVE: PHYSICAL EXAMINATION: VS: Stable, saturating well on 2 L which is his baseline oxygen requirement CONSTITUTIONAL: No acute distress, resting comfortably in bed, AAO x 3 EYES: PERRLA, EOM intact HENT, MOUTH: Normocephalic, atraumatic, moist mucous membranes, nasal cannula in place NECK: SUPPLE, no JVD, no lymphadenopathy, no carotid bruit CV: Regular rate and rhythm, paced S1S2 normal, no murmurs/rubs/gallops RESPIRATORY: Clear to auscultation bilaterally, no rales/rhonchi/wheezes GI: BS positive in 4 quadrants, soft, nontender, nondistended, no rebound or guarding, no organomegaly : Deferred MUSCULOSKELETAL: Thin extremities, decreased range of motion of left hip, a small area of bruising on the left flank. Point tenderness over greater trochanteric area. No cyanosis, clubbing, swelling, joint deformity, extremity edema INTEGUMENTARY: Intact, no rashes, no lesions, no erythema NEUROLOGIC: Cranial Nerves II-XII are intact, no focal deficits, gait not tested PSYCHIATRIC: Mood and affect are normal LABORATORY DATA: Please see below IMAGING: CT left hip 10/02/21: IMPRESSION: 1. Subtle nondisplaced fracture involving the superior aspect of the greater trochanter. 2. Underlying osteopenia and moderate/early advanced osteoarthritic degenerative changes to the hip joint. ASSESSMENT: Patient is an 81-year-old female PLAN: Nondisplaced left greater trochanter fracture -Nonsurgical per orthopedic surgery, [facility] -CT left hip above -Suggestions for activity: WBAT with walker, bed to chair-transfers. No strength training. No precautions on that leg. -After 6 weeks, f/u with [facility] -PT/OT: Patient demonstrates decreased mobility below prior level of function. Patient will benefit from skilled PT in order to improve functional mobility to a level that is safe for D/C to home with services. -C/w pain control, ASA, lovenox -If any questions about activity orders, please call Fady Canomike [phone]. Coronary artery disease status post CABG -Stable, no chest pain -C/w home medications Congestive heart failure -Currently not in exacerbation -C/w home meds Chronic hypoxic respiratory failure on 2 L NC ATC -Patient states this is 2/2 to her heart issues -No documented hx of COPD -albuterol PRN TIA -No deficits -C/w ASA, satin Diabetes mellitus -Holding PO metformin -ISS, FS AC/HS, consistent carb diet, hypoglycemic protocol Depression -C/w home med Iron deficiency anemia -CBC at baseline -CBC regularly Hyperlipidemia -statin Peripheral neuropathy -gabapentin Hypothyroidism -levothyroxine DVT PX -asa, tEDS/SCD DISPOSITION: Admitted as acute inpatient. PT/OT. To touch base with patient family services 10/08/2021 to discuss discharge plan. VS, I&O, 24H, Fishbone Vital Signs/I&O Vital Signs Date Time Temp Pulse Resp B/P (MAP) Pulse Ox O2 Delivery O2 Flow Rate FiO2 10/07/21 09:00 2.0 10/07/21 08:45 74 142/72 10/07/21 06:00 97.3 18 98 Nasal Cannula I&O- Last 24 Hours up to 6 AM 10/07/21 06:00 Intake Total 1020 ml Balance 1020 ml Laboratory Data 24H LABS Laboratory Tests 2 10/06/21 13:56: Prothrombin Time 16.5H, Prothromb Time International Ratio 1.29, Activated Partial Thromboplast Time 32.1 10/06/21 16:56: Bedside Glucose (Misc Panel) 212H 10/06/21 20:20: Bedside Glucose (Misc Panel) 148H 10/07/21 07:40: Nucleated Red Blood Cells % (auto) 0.0, Anion Gap 7L, Glomerular Filtration Rate > 60.0, Calcium Level 8.4L, Total Bilirubin 0.3, Aspartate Amino Transf (AST/SGOT) 33, Alanine Aminotransferase (ALT/SGPT) 35, Alkaline Phosphatase 85, Total Protein 5.6L, Albumin 2.2L, Albumin/Globulin Ratio 0.6L 10/07/21 11:24: Bedside Glucose (Misc Panel) 176H CBC/BMP Laboratory Tests 10/07/21 07:40 Lynette Ryees MD Oct 07, 2021 13:12
[2021-10-07 14:00] VITALS: BP 114/56
[2021-10-07] MEDS: MIRALAX *UNIT DOSE* 17GM PACKET PO PRN (17:20)
[2021-10-07] MEDS: ROSUVASTATIN 10 MG TAB (CRESTOR) PO SCH (21:32)
[2021-10-07] MEDS: GABAPENTIN 100 MG CAP PO SCH (21:32)
[2021-10-07 22:00] VITALS: BP 135/88
[2021-10-08 05:53] LABS: HEMATOCRIT 32.4 % (36.0-47.0); HEMOGLOBIN 10.2 g/dl (12.0-15.5); MEAN CORPUSCULAR HEMOGLOBIN 31.1 pg (27.0-33.0); MEAN CORPUSCULAR HGB CONC 31.5 g/dl (32.0-36.5); MEAN CORPUSCULAR VOLUME 98.8 fl (80.0-96.0); PLATELET COUNT, AUTOMATED 281 10^3/uL (150-450); RED BLOOD COUNT 3.28 10^6/uL (4.00-5.40)
[2021-10-08] MEDS: LEVOTHYROXINE 112MCG TABLET (0.112MG) PO SCH (05:54)
[2021-10-08 06:00] VITALS: BP 139/80
[2021-10-08 06:19] LABS: ALBUMIN 2.1 GM/DL (3.2-5.2); ALT/SGPT 32 U/L (12-78); BILIRUBIN,TOTAL 0.3 MG/DL (0.2-1.0); BLOOD UREA NITROGEN 20 MG/DL (7-18); CALCIUM LEVEL 8.3 MG/DL (8.8-10.2); CARBON DIOXIDE LEVEL 25 MEQ/L (21-32); CHLORIDE LEVEL 113 MEQ/L (98-107); CREATININE FOR GFR 0.94 MG/DL (0.55-1.30); GLOMERULAR FILTRATION RATE > 60.0 (>32); GLUCOSE, FASTING 192 MG/DL (70-100); POTASSIUM SERUM 4.2 MEQ/L (3.5-5.1); SODIUM LEVEL 144 MEQ/L (136-145)
[2021-10-08] MEDS: ENOXAPARIN 40MG/0.4ML SYRINGE (J1650 PER 10MG) SC SCH (08:49)
[2021-10-08] MEDS: ASPIRIN 81MG ENTERIC TABLET PO SCH (08:49)
[2021-10-08] MEDS: HumaLOG INSULIN (NovoLOG) PER UNIT SC SCH ×2 (08:49→12:13)
[2021-10-08] MEDS: SERTRALINE 100 MG TAB PO SCH (08:50)
[2021-10-08] MEDS: SPIRONOLACTONE 25 MG TAB PO SCH (08:50)
[2021-10-08] MEDS: OCUVITE 1 TAB PO SCH (08:50)
[2021-10-08] MEDS: TOPIRAMATE (TopAMAX) 25 MG TAB PO SCH (08:50)
[2021-10-08 08:51] VITALS: BP 139/80
[2021-10-08] MEDS: CLOPIDOGREL 75 MG TAB PO SCH (08:51)
[2021-10-08] MEDS: CARVedilol 6.25 MG TAB PO SCH (08:51)
[2021-10-08] MEDS: bisoproloL fumarate 5 MG TAB PO SCH (08:51)
[2021-10-08] MEDS: ENTRESTO 24-26MG TABLET (SACUBITRIL/VALSARTAN) PO SCH (08:52)
[2021-10-08] MEDS: DOCUSATE SODIUM 100MG CAPSULE PO SCH (08:52)
[2021-10-08] MEDS: FENOFIBRATE 145MG TABLET (TRICOR) PO SCH (08:52)
[2021-10-08] MEDS: SENNA 8.6 MG TAB (SENOKOT) PO PRN (09:00)
[2021-10-08] MEDS ORDERED: PERCOCET PO ×2 (09:55)
[2021-10-08] MEDS ORDERED: SENN18TA PO (09:55)
[2021-10-08] MEDS ORDERED: MIRA1POW3 PO (09:55)
[2021-10-08] MEDS ORDERED: LOVE1INJ SC (09:55)
[2021-10-08] MEDS ORDERED: COLA100C5 PO (09:55)
[2021-10-08 14:00] VITALS: BP 112/58
--- NOTE | 2021-10-08 18:49 | DS.PDOC ---
Discharge Summary General Date of Admission Oct 05, 2021 at 13:12 Date of Discharge 10/08/21 Attending Physician: Lynette Reyes MD Discharge Summary PROCEDURES PERFORMED DURING STAY: None ADMITTING DIAGNOSES: Nondisplaced left greater trochanter fracture Coronary artery disease status post CABG Congestive heart failure Chronic hypoxic respiratory failure on 2 L NC ATC DISCHARGE DIAGNOSES: Nondisplaced left greater trochanter fracture Coronary artery disease status post CABG Congestive heart failure Chronic hypoxic respiratory failure on 2 L NC ATC TIA Diabetes mellitus Depression Iron deficiency anemia Hyperlipidemia Peripheral neuropathy Hypothyroidism COMPLICATIONS/CHIEF COMPLAINT: Hip Fracture/Weakness. HISTORY OF PRESENT ILLNESS: Patient is an 81-year-old female with past medical history of coronary artery disease status post CABG, congestive heart failure, chronic hypoxic respiratory failure on home oxygen, TIA, diabetes mellitus, depression, iron deficiency anemia, hyperlipidemia, peripheral neuropathy, hypothyroidism who presented to [facility] emergency room with a chief complaint of increased left hip and leg pain. The patient states on 09/22/2021 she experienced a mechanical fall at home and immediately felt left hip and leg pain. After the weekend she presented to [facility] orthopedic office 09/27/21 and was seen by MAXIME Montes who ordered CT of the left hip. On 10/02/21 CT was done showing a subtle nondisplaced fracture involving the superior aspect of the greater trochanter, underlying osteopenia and moderate/early advanced OA degenerative changes to the hip joint. According to the patient she was told surgery was not an option and conservative management was chosen. She left the clinic and returned home with her . She had another telephone visit with orthopedic surgery on 10/04/21. Since her repeat evaluation by orthopedic surgery, the patient has continue to only move very little, states she cannot apply any weight to the left lower extremity without significant pain. She denies chest pain, increased shortness of breath from baseline, fevers, chills, nausea, increased swelling of the left lower extremity, nausea/vomiting/diarrhea. HOSPITAL COURSE: Upon her arrival to the emergency room, vital signs were stable and she was on 2 L nasal cannula which is her baseline oxygen requirement. She had limited range of motion of the left hip with pain to palpation of the area around the greater trochanter of the left hip. I discussed the case with Fady Milian who was very familiar with the case and was able to give us the remainder of the background information. Since she is not a surgical candidate he was also able to give me the suggestion for activity orders. The patient was admitted under my service for nondisplaced greater trochanteric fracture s/p fall, requiring further evaluation by physical therapy and likely rehabilitation. The following issues were addressed during her time inpatient: Nondisplaced left greater trochanter fracture -Nonsurgical per orthopedic surgery, [facility] -CT left hip above -Suggestions for activity: WBAT with walker, bed to chair-transfers. No strength training. No precautions on that leg. -After 6 weeks, f/u with [facility] -PT/OT: Patient demonstrates decreased mobility below prior level of function. Patient will benefit from skilled PT in order to improve functional mobility to a level that is safe for D/C to home with services. -C/w pain control, ASA, lovenox -If any questions about activity orders, please call Fady Milian [phone]. Coronary artery disease status post CABG -Stable, no chest pain -C/w home medications Congestive heart failure -Currently not in exacerbation -C/w home meds Chronic hypoxic respiratory failure on 2 L SC ATC -Patient states this is 2/2 to her heart issues -No documented hx of COPD -albuterol PRN TIA -No deficits -C/w ASA, satin Diabetes mellitus -Holding PO metformin -ISS, FS AC/HS, consistent carb diet, hypoglycemic protocol Depression -C/w home med Iron deficiency anemia -CBC at baseline -CBC regularly Hyperlipidemia -statin Peripheral neuropathy -gabapentin Hypothyroidism -levothyroxine DVT px -lovenox DISCHARGE MEDICATIONS: Please see below. ALLERGIES: Please see below. PHYSICAL EXAMINATION ON DISCHARGE: VS: Stable, saturating well on 2 L which is his baseline oxygen requirement CONSTITUTIONAL: No acute distress, resting comfortably in bed, AAO x 3 EYES: PERRLA, EOM intact HENT, MOUTH: Normocephalic, atraumatic, moist mucous membranes, nasal cannula in place NECK: SUPPLE, no JVD, no lymphadenopathy, no carotid bruit CV: Regular rate and rhythm, paced S1S2 normal, no murmurs/rubs/gallops RESPIRATORY: Clear to auscultation bilaterally, no rales/rhonchi/wheezes GI: BS positive in 4 quadrants, soft, nontender, nondistended, no rebound or guarding, no organomegaly : Deferred MUSCULOSKELETAL: Thin extremities, decreased range of motion of left hip, a small area of bruising on the left flank. Point tenderness over greater trochanteric area. No cyanosis, clubbing, swelling, joint deformity, extremity edema INTEGUMENTARY: Intact, no rashes, no lesions, no erythema NEUROLOGIC: Cranial Nerves II-XII are intact, no focal deficits, gait not tested PSYCHIATRIC: Mood and affect are normal LABORATORY DATA: Please see below IMAGING: CT left hip 10/02/21: IMPRESSION: 1. Subtle nondisplaced fracture involving the superior aspect of the greater trochanter. 2. Underlying osteopenia and moderate/early advanced osteoarthritic degenerative changes to the hip joint. PROGNOSIS: Good ACTIVITY: As tolerated DIET: consistent carb DISPOSITION: 62 D/T Rehab Facility. DISCHARGE INSTRUCTIONS / ITEMS TO FOLLOWUP ON ON OUTPATIENT: 1. Suggestions for activity: WBAT with walker, bed to chair-transfers. No strength training. No precautions on that leg. 2. After 6 weeks, f/u with [facility] 3. If any questions about activity orders, please call Fady Milian [phone]. DISCHARGE CONDITION: Stable TIME SPENT ON DISCHARGE: 35 minutes. Vital Signs/I&Os Vital Signs Date Time Temp Pulse Resp B/P (MAP) Pulse Ox O2 Delivery O2 Flow Rate FiO2 10/08/21 14:00 97.8 61 22 112/58 (76) 98 Nasal Cannula 2.0 I&O- Last 24 Hours up to 6 AM 10/08/21 06:00 Intake Total 880 ml Balance 880 ml Laboratory Data Labs 24H Laboratory Tests 2 10/07/21 20:19: Bedside Glucose (Misc Panel) 181H 10/08/21 05:43: Nucleated Red Blood Cells % (auto) 0.0, Anion Gap 6L, Glomerular Filtration Rate > 60.0, Calcium Level 8.3L, Total Bilirubin 0.3, Aspartate Amino Transf (AST/SGOT) 23, Alanine Aminotransferase (ALT/SGPT) 32, Alkaline Phosphatase 86, Total Protein 5.0L, Albumin 2.1L, Albumin/Globulin Ratio 0.7L 10/08/21 11:43: Bedside Glucose (Misc Panel) 228H CBC/BMP Laboratory Tests 10/08/21 05:43 FSBS Laboratory Tests Test 10/07/21 20:19 10/08/21 11:43 Range/Units Bedside Glucose (Misc Panel) 181 228 83-110 MG/DL Discharge Medications Scheduled Aspirin (Aspirin EC) 81 Mg Tab, 81 MG PO DAILY, (Reported) Bisoprolol Fumarate (Bisoprolol Fumarate) 5 Mg Tablet, 5 MG PO DAILY, (Reported) Carvedilol (Carvedilol) 6.25 Mg Tablet, 6.25 MG PO BID, (Reported) Clopidogrel Bisulfate (Plavix) 75 Mg Tablet, 75 MG PO DAILY, (Reported) Dexlansoprazole (Dexilant) 60 Mg Cap.drAmadeobp, 60 MG PO DAILY, (Reported) Docusate Sodium (Colace) 100 Mg Capsule, 100 MG PO BID Enoxaparin Sodium (Lovenox) 40 Mg/0.4 Ml Syringe, 40 MG SC DAILY Fenofibrate (Fenofibrate) 160 Mg Tablet, 160 MG PO DAILY, (Reported) Fremanezumab-Vfrm (Ajovy) 225 Mg/1.5 Ml Syringe, 225 MG SC QMONTH, (Reported) Gabapentin (Gabapentin) 100 Mg Capsule, 200 MG PO QHS, (Reported) Levothyroxine Sodium (Synthroid) 112 Mcg Tablet, 112 MCG PO DAILY, (Reported) Liraglutide (Victoza 3-Tre) 0.6 Mg/0.1 Ml Pen.injctr, 1.8 MG SC DAILY, (Rep orted) Metformin HCl (Metformin HCl) 850 Mg Tablet, 850 MG PO TID, (Reported) Mirabegron (Myrbetriq) 50 Mg Tab.er.24h, 50 MG PO DAILY, (Reported) Rosuvastatin Calcium (Rosuvastatin Calcium) 20 Mg Tablet, 20 MG PO QHS, (Reported) Sacubitril/Valsartan (Entresto 24 mg-26 mg Tablet) 1 Each Tablet, 1 TAB PO DAILY, (Reported) Sertraline Hcl (Zoloft) 100 Mg Tablet, 100 MG PO DAILY, (Reported) Spironolactone (Spironolactone) 25 Mg Tablet, 25 MG PO DAILY, (Reported) Topiramate (Topiramate) 25 Mg Tablet, 25 MG PO BID, (Reported) Ubidecarenone/Vit E Acet (Co Q-10 100 mg Softgel) 100 Mg Cap, 100 MG PO DAILY, (Reported) Vit A/Vit C/Vit E/Zinc/Copper (Preservision Areds Softgel) 1 Each Capsule, 1 CAP PO BID, (Reported) Scheduled PRN Oxycodone/Acetaminophen (Oxycodone-Acetaminophen 5-325) 1 Each Tablet, 1 TAB PO Q4HP PRN for MODERATE PAIN (PS 5-7) Oxycodone/Acetaminophen (Oxycodone-Acetaminophen 5-325) 1 Each Tablet, 2 TAB PO Q6HP PRN for SEVERE PAIN (PS 8-10) Polyethylene Glycol 3350 (Miralax) 17 Gm Powd.pack, 1 PKT PO DAILYPRN PRN for CONSTIPATION Senna (Senna Lax) 8.6 Mg Tablet, 2 TAB PO QHSP PRN for CONSTIPATION Torsemide (Torsemide) 20 Mg Tablet, 20 MG PO DAILY PRN for EDEMA, (Reported) NEEDED FOR WEIGHT GAIN OVER 5LBS Tramadol HCl (Tramadol HCl) 50 Mg Tablet, 50 MG PO Q6H PRN for PAIN LEVEL 3-5, (Reported) Allergies Coded Allergies: exenatide (Verified Allergy, Unknown, 10/05/21) atorvastatin (Verified Adverse Reaction, Intermediate, muscle pain, 10/05/21) metoclopramide (Verified Adverse Reaction, Intermediate, tremor, 10/05/21) Tetracyclines (Verified Adverse Reaction, Mild, N/V, 10/05/21) Lynette Reyes MD Oct 08, 2021 18:49
== END 2021-10-08 14:30 | DRG 536 ==
LOC: M ED 09:08 → M ED INP 13:12 → ENRESERV 13:59 → M MS5PR 14:42
PROVIDERS: ADMIT Internal Medicine; ATTEND Internal Medicine
DX: S72.115A Nondisplaced fracture of greater trochanter of left femur, initial encounter for closed fracture (principal); J96.11 Chronic respiratory failure with hypoxia; I25.10 Atherosclerotic heart disease of native coronary artery without angina pectoris; I50.9 Heart failure, unspecified; E11.42 Type 2 diabetes mellitus with diabetic polyneuropathy; F32.A Depression, unspecified; D50.9 Iron deficiency anemia, unspecified; E78.5 Hyperlipidemia, unspecified; E03.9 Hypothyroidism, unspecified; Z86.73 Personal history of transient ischemic attack (TIA), and cerebral infarction without residual deficits; Z95.5 Presence of coronary angioplasty implant and graft; Z99.81 Dependence on supplemental oxygen; Z98.41 Cataract extraction status, right eye; Z98.42 Cataract extraction status, left eye; Z87.891 Personal history of nicotine dependence; Z20.822 Contact with and (suspected) exposure to COVID-19; Z79.82 Long term (current) use of aspirin; Z79.02 Long term (current) use of antithrombotics/antiplatelets; Z79.84 Long term (current) use of oral hypoglycemic drugs; Z79.899 Other long term (current) drug therapy; Z88.8 Allergy status to other drugs, medicaments and biological substances; W18.09XA Striking against other object with subsequent fall, initial encounter; Y92.009 Unspecified place in unspecified non-institutional (private) residence as the place of occurrence of the external cause; Y93.9 Activity, unspecified; Y99.8 Other external cause status

== ENCOUNTER 2021-10-08 09:58 | Inpatient (IN) | payer MEDICARE, BC ==
[~2021-10-08] VITALS: Ht 154.9 cm; Wt 56.4 kg
[~2021-10-08 09:58] MED LIST changes: +AJOV225I SC; +BISO5TAB14 PO; +CARV6.25 PO; +COLA100C5 PO; +DEXI60CA2 PO; +ENTR1TAB PO; +FENO160T10 PO; +GABA-1171 PO; +LOVE1INJ SC; +METF850T4 PO; +METO5TAB2 PO; +MIRA1POW3 PO; +MYRB50TA PO; +PERCOCET PO; +PLAV1TAB2 PO; +PRESCAP PO; +ROSU20TA5 PO; +SENN18TA PO; +SPIR-10 PO; +SYNT112T2 PO; +TOPI25TA10 PO; +TORS20TA2 PO; +TRAM50TA2 PO; +VICT18IN2 SC; +ZOLO100T PO
[2021-10-08] MEDS ORDERED: GLUCOSE 4GM CHEW TABLET PO PRN (14:15)
[2021-10-08] MEDS ORDERED: DEXTROSE 50% 50 ML SYRINGE IV PRN (14:15)
[2021-10-08] MEDS ORDERED: MIRALAX *UNIT DOSE* 17GM PACKET PO PRN (14:15)
[2021-10-08] MEDS ORDERED: GLUCAGON INJ 1MG VIAL SC PRN (14:15)
[2021-10-08 14:45] VITALS: BP 111/54
[2021-10-08] MEDS: REMEDY PHYTOPLEX Z-GUARD PASTE 113GM TUBE (FROM STOREROOM PRODUCT) TOP SCH ×2 (16:00→21:00)
[2021-10-08] MEDS: HumaLOG INSULIN (NovoLOG) PER UNIT SC SCH ×2 (17:31→21:15)
[2021-10-08] MEDS: ACETAMINOPHEN 500 MG TAB PO SCH ×2 (17:31→21:13)
[2021-10-08 20:00] VITALS: BP 157/60
[2021-10-08] MEDS: ROSUVASTATIN 10 MG TAB (CRESTOR) PO SCH (21:13)
[2021-10-08] MEDS: DOCUSATE SODIUM 100MG CAPSULE PO SCH (21:14)
[2021-10-08] MEDS: SENNA 8.6 MG TAB (SENOKOT) PO SCH (21:14)
[2021-10-08] MEDS: PANTOPRAZOLE 40MG TAB (PROTONIX) PO SCH (21:14)
[2021-10-08] MEDS: GABAPENTIN 100 MG CAP PO SCH (21:14)
[2021-10-08] MEDS: TOPIRAMATE (TopAMAX) 25 MG TAB PO SCH (21:15)
[2021-10-08] MEDS: CARVedilol 6.25 MG TAB PO SCH (21:15)
[2021-10-09 05:12] VITALS: BP 152/70
[2021-10-09] MEDS: LEVOTHYROXINE 112MCG TABLET (0.112MG) PO SCH (06:11)
[2021-10-09] MEDS: SPIRONOLACTONE 25 MG TAB PO SCH (08:19)
[2021-10-09] MEDS: OCUVITE 1 TAB PO SCH (08:19)
[2021-10-09] MEDS: PANTOPRAZOLE 40MG TAB (PROTONIX) PO SCH ×2 (08:19→21:42)
[2021-10-09] MEDS: ASPIRIN 81MG ENTERIC TABLET PO SCH (08:19)
[2021-10-09] MEDS: ENTRESTO 24-26MG TABLET (SACUBITRIL/VALSARTAN) PO SCH (08:19)
[2021-10-09] MEDS: TOPIRAMATE (TopAMAX) 25 MG TAB PO SCH ×2 (08:19→21:43)
[2021-10-09] MEDS: FENOFIBRATE 145MG TABLET (TRICOR) PO SCH (08:19)
[2021-10-09] MEDS: CARVedilol 6.25 MG TAB PO SCH ×2 (08:21→21:43)
[2021-10-09] MEDS: ACETAMINOPHEN 500 MG TAB PO SCH ×4 (08:22→21:42)
[2021-10-09] MEDS: ENOXAPARIN 40MG/0.4ML SYRINGE (J1650 PER 10MG) SC SCH (08:22)
[2021-10-09] MEDS: CLOPIDOGREL 75 MG TAB PO SCH (08:22)
[2021-10-09] MEDS: bisoproloL fumarate 5 MG TAB PO SCH (08:22)
[2021-10-09] MEDS: SERTRALINE 100 MG TAB PO SCH (08:22)
[2021-10-09] MEDS: REMEDY PHYTOPLEX Z-GUARD PASTE 113GM TUBE (FROM STOREROOM PRODUCT) TOP SCH ×3 (08:23→21:45)
[2021-10-09] MEDS: HumaLOG INSULIN (NovoLOG) PER UNIT SC SCH ×4 (08:23→21:00)
[2021-10-09] MEDS: DOCUSATE SODIUM 100MG CAPSULE PO SCH ×2 (08:23→21:00)
[2021-10-09] MEDS ORDERED: PANTOPRAZOLE 40MG TAB (PROTONIX) PO SCH (09:00)
--- NOTE | 2021-10-09 09:42 | HPEPDOC ---
Senior Business Development Analyst Note DATE OF ADMISSION: 10-08-21 DATE OF SERVICE: 10-09-21 TIME OF ADMISSION: Please refer to physician's admission order. SOURCE OF ADMISSION INFORMATION: [facility] record and patient CHIEF COMPLAINT: left femur fracture HISTORY OF PRESENT ILLNESS: 81F pmh CAD s/p CABG, CHF, chronic hypoxic respiratory failure on home 02, TIA, DM, depression, JULIO, HLD, peripheral polyneuropathy, hypothyroidism presented to [facility] ED on 10-05-21 after sustaining a mechanical fall at home which was worked up by Fady SWARTZ at [facility] on 09-27-21 where she was diagnosed with a left femur fracture deemed to be non-operable, however had worsening pain and inability to ambulate so was admitted to [facility] for further evaluation. [facility] revealed Subtle nondisplaced fracture involving the superior aspect of the greater trochanter. Patient was advised to remain WBAT to her LLE. She was noted to have a drop on her hemoglobin, intermittently elevated blood pressures, and an elevated BUN suggestive of degree of dehydration. She had considerable weakness, difficulty with mobility and ADLs and deemed medically appropriate for discharge to ARU on . REVIEW OF SYSTEMS: The following is a completed review of systems and has been reviewed. Review of systems otherwise unremarkable. PAIN: Patient self reports minimal left hip pain EYES: No recent vision changes EARS, NOSE, & THROAT: No throat pain, or dysphagia, or rhinorrhea CARDIOVASCULAR: Denies chest pain or palpitations PULMONARY: Denies shortness of breath GASTROINTESTINAL: Denies constipation/diarrhea GENITOURINARY:denies dysuria MUSCULOSKELETAL: left femur fracture NEUROLOGICAL:+peripheral polyneuropathy HEMATOLOGICAL: denies easy bruising SKIN: bilat forearms with small ulcers PSYCHIATRIC: Unremarkable All other review of systems found to be negative. PAST MEDICAL HISTORY: as per [facility] PAST SURGICAL HISTORY: Tonsillectomy, Bilateral cataract surgeries, 1993 1998, Spine surgery, Tubal ligation,Hysterectomy, Coronary artery stent placement 1996, CABG 1997, Left carpal tunnel release and ulnar nerve transposition 12/2011, Right carpal tunnel release and ulnar nerve transposition 05/2012, Right knee surgery ALLERGIES: Please see below. MEDICATIONS: Please see below. FAMILY HISTORY: non-contributory SOCIAL HISTORY: Former smoker, denies etoh/illicit drugs DIET: consistent carb PHYSICAL EXAMINATION: VITAL SIGNS: Please see below. GENERAL: Pleasant and cooperative. No acute distress. HEENT: PERRL. Extraocular movements intact. Clear conjunctiva CARDIOVASCULAR: Regular rate and rhythm. No murmurs, rubs, or gallops LUNGS: Clear to auscultation bilaterally. No wheezes. No rhonchi ABDOMEN: Soft, nontender, nondistended. Positive bowel sounds. Normal active bowel sounds NEUROLOGICAL: Alert and oriented times three. Cranial nerves II through XII grossly intact. Sensation grossly intact EXTREMITIES: 5\5 strength bilateral upper extremities. 5\5 strength right lower extremity. 4/5 strength in left lower extremity. bilat forearms with small ulcers LABORATORY DATA: Please see below. IMAGING: Imaging documentation personally reviewed by record FUNCTIONAL STATUS: Premorbid: Mod-Independent with all activities of daily life as well as mobility On Admission: Contact -guard to min assist for functional transfers and ambulation, Max assist for toileting transfers GOALS: Mod-I for bed mobility, functional transfers, dressing, toileting, bathing, ambulation ASSESSMENT:81-year-old F with past medical history of CAD s/p CABG and chronic hypoxic respiratory failure on home 02, who presents status post fall with left femur fracture PLAN: 1. Rehab- PT/OT advance mobility and ADLs, strengthen/stretch/maintain ROM all 4 limbs 2. Ortho s/p fall with left greater trochanter femur fracture, WBAT, f/u [facility] 3. Neuro- hx of TIA on ASA/Palvix and statin -peripheral polyneuropathy due to DM cont gabapentin 3. Cardiac- hx of CAD s/p CABG cont ASA and Plavix, betablockers -hx of CHF cont Entresto, spironolactone, daily weights- patient reporting she felt like her CHF was getting worse last night, but is better today, will start torsemide 10mg daily (she usually takes 20mg prn weight gain)- no crackles on exam or LE edema -HTN cont BP meds -HLD cont statin and fenofibrate 4. Resp- hx of chronic hypoxic respiratory failure on home 02, monitor for infection 5. Endo- hx of DM cont ISS and consistent carb diet -hypothyroidism cont Synthroid 6. GI ppx- protonix 7. Psych- hx of anxiety/depression cont Zoloft 8. - monitor PVRs 9. Pain- tylenol, oxycodone 10. DVT ppx- lovenox 11. Derm- patient with bilat forearm ulcers that she reports usually goes away with a short course of oral steroids her PMD prescribes, will start prednisone 5mg daily and add lotion, will refer to dermatology on d/c 12. Dispo tbd POST ADMISSION PHYSICIAN EVALUATION: Medical and functional status: Description of medical status, medical assessment: As above. Rehabilitation diagnosis and current and prior cold morbid medical conditions as above. Risk of complications and plans to mitigate them as above. Description of functional status current status is as above. Prior status as above. Status compared to preadmission: There are no clinically significant differences between the patient's current status and the information described on the preadmission screening document. Treatment plan anticipated: Treatment plan is as described above. Required disciplines including physical therapy, occupational therapy, others as noted above. Intensity of services: 3 hours a day, 6 days a week. Special considerations: There are no specific special or safety considerations that would likely preclude immediate implementation of an intensive rehabilitation program or subsequently influence the plan of care. ATTESTATION: Considering all the information above, it is my best judgment that this patient requires intensive rehabilitation therapy as described above and an inpatient hospital environment due to the complexity of nursing, medical, and rehabilitation needs required by the patient. Furthermore, this patient can reasonably be expected to participate in an benefit from an inpatient rehabilitation stay with an interdisciplinary team approach to the delivery of rehabilitation care under the direction and supervision of rehabilitation physician. PROGNOSIS: Excellent ESTIMATED LENGTH OF STAY:12-16 days. PROJECTED DISCHARGE DESTINATION: Home with family support and any durable medical equipment required to increase functional safety and mobility. TIME SPENT COUNSELING AND COORDINATING INITIAL CARE: Greater than 70 minutes. Vital Signs Vital Sign - Last 24 Hours 10/08/21 10/08/21 10/08/21 10/08/21 14:45 20:00 21:15 21:15 Temp 98.7 98.4 Pulse 67 73 68 Resp 18 18 B/P (MAP) 111/54 (73) 157/60 (92) 110/57 Pulse Ox 93 97 O2 Delivery Nasal Cannula Nasal Cannula O2 Flow Rate 2.0 2.0 2.0 10/09/21 10/09/21 10/09/21 05:12 08:21 08:22 Temp 97.0 Pulse 72 71 71 Resp 20 B/P (MAP) 152/70 (97) 156/73 156/73 Pulse Ox 93 O2 Delivery Nasal Cannula O2 Flow Rate 2.0 Laboratory Data Labs 24H Laboratory Tests 2 10/08/21 17:13: Bedside Glucose (Misc Panel) 272H 10/08/21 20:38: Bedside Glucose (Misc Panel) 257H 10/09/21 06:13: Bedside Glucose (Misc Panel) 205H FSBS Laboratory Tests Test 10/08/21 17:13 10/08/21 20:38 10/09/21 06:13 Range/Units Bedside Glucose (Misc Panel) 272 257 205 83-110 MG/DL Home Medications Scheduled Aspirin (Aspirin EC) 81 Mg Tab, 81 MG PO DAILY, (Reported) Bisoprolol Fumarate (Bisoprolol Fumarate) 5 Mg Tablet, 5 MG PO DAILY, (Reported) Carvedilol (Carvedilol) 6.25 Mg Tablet, 6.25 MG PO BID, (Reported) Clopidogrel Bisulfate (Plavix) 75 Mg Tablet, 75 MG PO DAILY, (Reported) Dexlansoprazole (Dexilant) 60 Mg Cap.bp, 60 MG PO DAILY, (Reported) Docusate Sodium (Colace) 100 Mg Capsule, 100 MG PO BID Enoxaparin Sodium (Lovenox) 40 Mg/0.4 Ml Syringe, 40 MG SC DAILY Fenofibrate (Fenofibrate) 160 Mg Tablet, 160 MG PO DAILY, (Reported) Fremanezumab-Vfrm (Ajovy) 225 Mg/1.5 Ml Syringe, 225 MG SC QMONTH, (Reported) Gabapentin (Gabapentin) 100 Mg Capsule, 200 MG PO QHS, (Reported) Levothyroxine Sodium (Synthroid) 112 Mcg Tablet, 112 MCG PO DAILY, (Reported) Liraglutide (Victoza 3-Tre) 0.6 Mg/0.1 Ml Pen.injctr, 1.8 MG SC DAILY, (Reported) Metformin HCl (Metformin HCl) 850 Mg Tablet, 850 MG PO TID, (Reported) Mirabegron (Myrbetriq) 50 Mg Tab.er.24h, 50 MG PO DAILY, (Reported) Rosuvastatin Calcium (Rosuvastatin Calcium) 20 Mg Tablet, 20 MG PO QHS, (Reported) Sacubitril/Valsartan (Entresto 24 mg-26 mg Tablet) 1 Each Tablet, 1 TAB PO DAILY, (Reported) Sertraline Hcl (Zoloft) 100 Mg Tablet, 100 MG PO DAILY, (Reported) Spironolactone (Spironolactone) 25 Mg Tablet, 25 MG PO DAILY, (Reported) Topiramate (Topiramate) 25 Mg Tablet, 25 MG PO BID, (Reported) Ubidecarenone/Vit E Acet (Co Q-10 100 mg Softgel) 100 Mg Cap, 100 MG PO DAILY, (Reported) Vit A/Vit C/Vit E/Zinc/Copper (Preservision Areds Softgel) 1 Each Capsule, 1 CAP PO BID, (Reported) Scheduled PRN Oxycodone/Acetaminophen (Oxycodone-Acetaminophen 5-325) 1 Each Tablet, 1 TAB PO Q4HP PRN for MODERATE PAIN (PS 5-7) Oxycodone/Acetaminophen (Oxycodone-Acetaminophen 5-325) 1 Each Tablet, 2 TAB PO Q6HP PRN for SEVERE PAIN (PS 8-10) Polyethylene Glycol 3350 (Miralax) 17 Gm Powd.pack, 1 PKT PO DAILYPRN PRN for CONSTIPATION Senna (Senna Lax) 8.6 Mg Tablet, 2 TAB PO QHSP PRN for CONSTIPATION Torsemide (Torsemide) 20 Mg Tablet, 20 MG PO DAILY PRN for EDEMA, (Reported) NEEDED FOR WEIGHT GAIN OVER 5LBS Tramadol HCl (Tramadol HCl) 50 Mg Tablet, 50 MG PO Q6H PRN for PAIN LEVEL 3-5, (Reported) Allergies Coded Allergies: exenatide (Verified Allergy, Unknown, 10/05/21) atorvastatin (Verified Adverse Reaction, Intermediate, muscle pain, 10/05/21) metoclopramide (Verified Adverse Reaction, Intermediate, tremor, 10/05/21) Tetracyclines (Verified Adverse Reaction, Mild, N/V, 10/05/21) A-FIB/CHADSVASC A-FIB History Current/History of A-Fib/PAF?: No Current PO Anticoag Therapy: No JANUARY GROVES MD Oct 09, 2021 09:42
[2021-10-09 10:52] LABS: BASO % 0.6 % (0.0-1.0); EOS # 0.2 10^3/uL (0.0-0.5); EOS % 4.1 % (0.0-3.0); HEMATOCRIT 33.3 % (36.0-47.0); HEMOGLOBIN 10.3 g/dl (12.0-15.5); LYMPH # 0.6 10^3/uL (1.5-5.0); LYMPH % 11.4 % (24.0-44.0); MEAN CORPUSCULAR HEMOGLOBIN 30.9 pg (27.0-33.0); MEAN CORPUSCULAR HGB CONC 30.9 g/dl (32.0-36.5); MONO # 0.3 10^3/uL (0.0-0.8); MONO % 5.5 % (2.0-8.0); NEUTROPHILS % 78.2 % (36.0-66.0); PLATELET COUNT, AUTOMATED 334 10^3/uL (150-450); RED BLOOD COUNT 3.33 10^6/uL (4.00-5.40); WHITE BLOOD COUNT 5.1 10^3/uL (4.0-10.0)
[2021-10-09 11:19] LABS: ALBUMIN 2.4 GM/DL (3.2-5.2); BILIRUBIN,TOTAL 0.3 MG/DL (0.2-1.0); CALCIUM LEVEL 8.4 MG/DL (8.8-10.2); CREATININE FOR GFR 1.04 MG/DL (0.55-1.30); GLOMERULAR FILTRATION RATE 54.3 (>32); POTASSIUM SERUM 3.9 MEQ/L (3.5-5.1); TOTAL PROTEIN 5.2 GM/DL (6.4-8.2)
[2021-10-09 14:00] VITALS: BP 99/68
[2021-10-09] MEDS: TORSEMIDE 10 MG TABLET PO SCH (14:10)
[2021-10-09] MEDS: oxyCODONE 5MG TAB PO PRN (14:10)
[2021-10-09] MEDS: predniSONE 5 MG TAB PO SCH (17:28)
[2021-10-09] MEDS ORDERED: LEVEMIR (INSULIN DETEMIR) 1 UNITS/0.01ML SC SCH (21:00)
[2021-10-09] MEDS: SENNA 8.6 MG TAB (SENOKOT) PO SCH (21:00)
[2021-10-09 21:14] VITALS: BP 151/67
[2021-10-09] MEDS: LACTIC ACID 12% LOTION 225 GM BTL TOP SCH (21:41)
[2021-10-09] MEDS: GABAPENTIN 100 MG CAP PO SCH (21:42)
[2021-10-09] MEDS: ROSUVASTATIN 10 MG TAB (CRESTOR) PO SCH (21:42)
[2021-10-10 05:48] VITALS: BP 148/70
[2021-10-10] MEDS: LEVOTHYROXINE 112MCG TABLET (0.112MG) PO SCH (05:55)
[2021-10-10 06:25] LABS: BASO % 0.4 % (0.0-1.0); EOS # 0.1 10^3/uL (0.0-0.5); EOS % 2.3 % (0.0-3.0); HEMOGLOBIN 10.2 g/dl (12.0-15.5); LYMPH # 0.9 10^3/uL (1.5-5.0); MEAN CORPUSCULAR HEMOGLOBIN 30.4 pg (27.0-33.0); MEAN CORPUSCULAR HGB CONC 30.9 g/dl (32.0-36.5); MEAN CORPUSCULAR VOLUME 98.5 fl (80.0-96.0); MONO # 0.4 10^3/uL (0.0-0.8); NEUTROPHILS # 3.7 10^3/uL (1.5-8.5); NEUTROPHILS % 72.7 % (36.0-66.0); PLATELET COUNT, AUTOMATED 407 10^3/uL (150-450); RED BLOOD COUNT 3.35 10^6/uL (4.00-5.40); WHITE BLOOD COUNT 5.1 10^3/uL (4.0-10.0)
[2021-10-10 07:02] LABS: CALCIUM LEVEL 8.5 MG/DL (8.8-10.2); CREATININE FOR GFR 1.09 MG/DL (0.55-1.30); GLOMERULAR FILTRATION RATE 51.4 (>32); POTASSIUM SERUM 4.9 MEQ/L (3.5-5.1)
[2021-10-10] MEDS: HumaLOG INSULIN (NovoLOG) PER UNIT SC SCH ×4 (08:20→21:00)
[2021-10-10] MEDS: TORSEMIDE 10 MG TABLET PO SCH ×2 (09:00→10:02)
--- NOTE | 2021-10-10 09:50 | HPEPDOC ---
[facility] Medical History & Physical Date of Admission Oct 10, 2021 Date of Service: Oct 10, 2021 History and Physical CHIEF COMPLAINT: "I hurt my leg" HISTORY OF PRESENT ILLNESS: 81-year-old female with a past medical history of coronary artery disease status post CABG, congestive heart failure, chronic hypoxic respiratory failure on home O2, TIA, diabetes mellitus, depression, iron deficiency anemia, hyperlipidemia, peripheral neuropathy, hypothyroidism who presented to [facility] emergency room with a chief complaint of increased left hip and leg pain at [facility] on 10/05. She fell on 09/22 and was evaluated at [facility] orthopedics. A subsequent CT scan done showed a subtle nondisplaced fracture involving the superior aspect of the greater trochanter, underlying osteopenia and moderately/early advanced osteoarthritis degenerative changes to the hip joint. She was deemed not a operable candidate. She was evaluated by the physical therapy team and deemed appropriate for acute rehab unit. Today, she was seen in the acute rehab unit. She had worked with physical therapy and complained of left leg pain but said it was tolerable. She denied chest pain, shortness of breath, abdominal pain, nausea, vomiting, problems with urination and bowel movements PAST MEDICAL HISTORY: Coronary artery disease status post CABG Congestive heart failure Chronic hypoxic respiratory failure on 2 L NC ATC TIA Diabetes mellitus Depression Iron deficiency anemia Hyperlipidemia Peripheral neuropathy Hypothyroidism PAST SURGICAL HISTORY: Tonsillectomy Bilateral cataract surgeries, 1993 1998 Spine surgery Tubal ligation Hysterectomy Coronary artery stent placement 1996 CABG 1997 Left carpal tunnel release and ulnar nerve transposition 12/2011 Right carpal tunnel release and ulnar nerve transposition 05/2012 Right knee surgery FAMILY HISTORY: No significant family history SOCIAL HISTORY: Past smoker, unknown when she quit. Denies alcohol and recreational drug use. FAMILY HISTORY: Father: Mother: Siblings: Children: Hereditary Diseases: Unexpected deaths due to medical reasons: ALLERGIES: Please see below. REVIEW OF SYSTEMS: 10 point review of system was negative except for what is noted in the HPI HOME MEDICATIONS: Please see below. PHYSICAL EXAMINATION: VITAL SIGNS: See below General: Lying in bed, no acute distress Head/Neck/Throat: Trachea midline, mucous membranes moist Eyes: Sclera anicteric, PERRLA Thorax: Normal respiratory effort on on 2 L nasal cannula, lungs clear to auscultation bilaterally, no wheezes/rales/rhonchi Cardiovascular: Normal rate, regular rhythm, normal S1, S2; no S3, S4, rubs/gallops/murmurs Abdomen: Bowel sounds present, soft/nontender/nondistended Genitourinary: No CVA tenderness, no Mendez in place Musculoskeletal: Moving all extremities, no edema Skin: Warm, dry Neurologic: AAOx3, speech fluent and goal-directed, no focal deficits, grossly intact LABORATORY DATA: See below. IMAGING: Please see previous imaging section MICROBIOLOGY: Please see below. ASSESSMENT/PLAN: 81-year-old female with the above-mentioned past medical history in rehab for an inoperable nondisplaced fracture involving the superior aspect of the greater trochanter. #Nondisplaced left greater trochanter fracture -Continue with PT/OT #CAD -Status post CABG. Stable and no complaints of chest pain. Continue ambulatory cardiac medications #Congestive heart failure -No signs of acute exacerbation. Continue with ambulatory medications. #Chronic hypoxic respiratory failure -Patient is on 2 L nasal cannula at baseline. There is no signs of acute exacerbation. Recommend albuterol as needed. #TIA -No focal deficits appreciated on exam. Continue with aspirin and statin therapy #Diabetes mellitus -Metformin is held during hospitalization. Continue with basal and prandial regimen. Adjust according to needs. #Depression -C/w sertraline #Iron deficiency anemia -Hemoglobin is stable. #Hyperlipidemia -Continue rosuvastatin. #Peripheral neuropathy -Continue gabapentin #Hypothyroidism -Continue levothyroxine #DVT px -lovenox Vital Signs Vital Signs Date Time Temp Pulse Resp B/P (MAP) Pulse Ox O2 Delivery O2 Flow Rate FiO2 10/10/21 05:48 96.8 73 20 148/70 (96) 97 Nasal Cannula 2.0 Laboratory Data Labs 24H Laboratory Tests 2 10/09/21 10:19: Immature Granulocyte % (Auto) 0.2, Neutrophils (%) (Auto) 78.2H, Lymphocytes (%) (Auto) 11.4L, Monocytes (%) (Auto) 5.5, Eosinophils (%) (Auto) 4.1H, Basophils (%) (Auto) 0.6, Neutrophils # (Auto) 4.0, Lymphocytes # (Auto) 0.6L, Monocytes # (Auto) 0.3, Eosinophils # (Auto) 0.2, Basophils # (Auto) 0.0, Nucleated Red Blood Cells % (auto) 0.0, Anion Gap 6L, Glomerular Filtration Rate 54.3, Calcium Level 8.4L, Total Bilirubin 0.3, Aspartate Amino Transf (AST/SGOT) 14, Alanine Aminotransferase (ALT/SGPT) 27, Alkaline Phosphatase 90, Total Protein 5.2L, Albumin 2.4L, Albumin/Globulin Ratio 0.9L 10/09/21 11:23: Bedside Glucose (Misc Panel) 196H 10/09/21 17:19: Bedside Glucose (Misc Panel) 277H 10/09/21 21:39: Bedside Glucose (Misc Panel) 240H 10/10/21 06:06: Immature Granulocyte % (Auto) 0.6, Neutrophils (%) (Auto) 72.7H, Lymphocytes (%) (Auto) 17.0L, Monocytes (%) (Auto) 7.0, Eosinophils (%) (Auto) 2.3, Basophils (%) (Auto) 0.4, Neutrophils # (Auto) 3.7, Lymphocytes # (Auto) 0.9L, Monocytes # (Auto) 0.4, Eosinophils # (Auto) 0.1, Basophils # (Auto) 0.0, Nucleated Red Blood Cells % (auto) 0.0, Anion Gap 3L, Glomerular Filtration Rate 51.4, Calcium Level 8.5L CBC/BMP Laboratory Tests 10/09/21 10:19 10/10/21 06:06 Home Medications Scheduled Aspirin (Aspirin EC) 81 Mg Tab, 81 MG PO DAILY Bisoprolol Fumarate (Bisoprolol Fumarate) 5 Mg Tablet, 5 MG PO DAILY Carvedilol (Carvedilol) 6.25 Mg Tablet, 6.25 MG PO BID Clopidogrel Bisulfate (Plavix) 75 Mg Tablet, 75 MG PO DAILY Dexlansoprazole (Dexilant) 60 Mg bp, 60 MG PO DAILY Docusate Sodium (Colace) 100 Mg Capsule, 100 MG PO BID Enoxaparin Sodium (Lovenox) 40 Mg/0.4 Ml Syringe, 40 MG SC DAILY Fenofibrate (Fenofibrate) 160 Mg Tablet, 160 MG PO DAILY Fremanezumab-Vfrm (Ajovy) 225 Mg/1.5 Ml Syringe, 225 MG SC QMONTH Gabapentin (Gabapentin) 100 Mg Capsule, 200 MG PO QHS Levothyroxine Sodium (Synthroid) 112 Mcg Tablet, 112 MCG PO DAILY Liraglutide (Victoza 3-Tre) 0.6 Mg/0.1 Ml Pen.injctr, 1.8 MG SC DAILY Metformin HCl (Metformin HCl) 850 Mg Tablet, 850 MG PO TID Mirabegron (Myrbetriq) 50 Mg Tab.er.24h, 50 MG PO DAILY Rosuvastatin Calcium (Rosuvastatin Calcium) 20 Mg Tablet, 20 MG PO QHS Sacubitril/Valsartan (Entresto 24 mg-26 mg Tablet) 1 Each Tablet, 1 TAB PO DAILY Sertraline Hcl (Zoloft) 100 Mg Tablet, 100 MG PO DAILY Spironolactone (Spironolactone) 25 Mg Tablet, 25 MG PO DAILY Topiramate (Topiramate) 25 Mg Tablet, 25 MG PO BID Ubidecarenone/Vit E Acet (Co Q-10 100 mg Softgel) 100 Mg Cap, 100 MG PO DAILY Vit A/Vit C/Vit E/Zinc/Copper (Preservision Areds Softgel) 1 Each Capsule, 1 CAP PO BID Scheduled PRN Oxycodone/Acetaminophen (Oxycodone-Acetaminophen 5-325) 1 Each Tablet, 1 TAB PO Q4HP PRN for MODERATE PAIN (PS 5-7) Oxycodone/Acetaminophen (Oxycodone-Acetaminophen 5-325) 1 Each Tablet, 2 TAB PO Q6HP PRN for SEVERE PAIN (PS 8-10) Polyethylene Glycol 3350 (Miralax) 17 Gm Powd.pack, 1 PKT PO DAILYPRN PRN for CONSTIPATION Senna (Senna Lax) 8.6 Mg Tablet, 2 TAB PO QHSP PRN for CONSTIPATION Torsemide (Torsemide) 20 Mg Tablet, 20 MG PO DAILY PRN for EDEMA NEEDED FOR WEIGHT GAIN OVER 5LBS Tramadol HCl (Tramadol HCl) 50 Mg Tablet, 50 MG PO Q6H PRN for PAIN LEVEL 3-5 Allergies Coded Allergies: exenatide (Verified Allergy, Unknown, 10/05/21) atorvastatin (Verified Adverse Reaction, Intermediate, muscle pain, 10/05/21) metoclopramide (Verified Adverse Reaction, Intermediate, tremor, 10/05/21) Tetracyclines (Verified Adverse Reaction, Mild, N/V, 10/05/21) A-FIB/CHADSVASC A-FIB History Current/History of A-Fib/PAF?: No STEVAN MARIN M.D. Oct 10, 2021 09:50
[2021-10-10] MEDS: PANTOPRAZOLE 40MG TAB (PROTONIX) PO SCH ×2 (10:01→21:55)
[2021-10-10] MEDS: OCUVITE 1 TAB PO SCH (10:01)
[2021-10-10] MEDS: ASPIRIN 81MG ENTERIC TABLET PO SCH (10:01)
[2021-10-10] MEDS: ENOXAPARIN 40MG/0.4ML SYRINGE (J1650 PER 10MG) SC SCH (10:01)
[2021-10-10] MEDS: ENTRESTO 24-26MG TABLET (SACUBITRIL/VALSARTAN) PO SCH (10:01)
[2021-10-10] MEDS: ACETAMINOPHEN 500 MG TAB PO SCH ×3 (10:02→21:55)
[2021-10-10] MEDS: DOCUSATE SODIUM 100MG CAPSULE PO SCH ×2 (10:02→21:53)
[2021-10-10] MEDS: SERTRALINE 100 MG TAB PO SCH (10:03)
[2021-10-10] MEDS: predniSONE 5 MG TAB PO SCH (10:03)
[2021-10-10] MEDS: CLOPIDOGREL 75 MG TAB PO SCH (10:03)
[2021-10-10] MEDS: CARVedilol 6.25 MG TAB PO SCH ×2 (10:03→21:53)
[2021-10-10] MEDS: FENOFIBRATE 145MG TABLET (TRICOR) PO SCH (10:03)
[2021-10-10] MEDS: SPIRONOLACTONE 25 MG TAB PO SCH (10:04)
[2021-10-10] MEDS: bisoproloL fumarate 5 MG TAB PO SCH (10:04)
[2021-10-10] MEDS: TOPIRAMATE (TopAMAX) 25 MG TAB PO SCH ×2 (10:04→21:53)
[2021-10-10] MEDS: REMEDY PHYTOPLEX Z-GUARD PASTE 113GM TUBE (FROM STOREROOM PRODUCT) TOP SCH ×3 (10:05→21:57)
[2021-10-10] MEDS: LACTIC ACID 12% LOTION 225 GM BTL TOP SCH ×2 (10:18→21:57)
--- NOTE | 2021-10-10 10:26 | IPNPDOC ---
PM&R Progress Note DATE OF SERVICE: Oct 10, 2021 Clinical Programmer Progress Note Subjective: Patient stating she feels pretty good today and her breathin ig much better, she would like to take her torsemide prn. REVIEW OF SYSTEMS: The following is a completed review of systems and has been reviewed. Review of systems otherwise unremarkable. PAIN: Patient self reports minimal left hip pain EYES: No recent vision changes EARS, NOSE, & THROAT: No throat pain, or dysphagia, or rhinorrhea CARDIOVASCULAR: Denies chest pain or palpitations PULMONARY: Denies shortness of breath GASTROINTESTINAL: Denies constipation/diarrhea GENITOURINARY:denies dysuria MUSCULOSKELETAL: left femur fracture NEUROLOGICAL:+peripheral polyneuropathy HEMATOLOGICAL: denies easy bruising SKIN: bilat forearms with small ulcers PSYCHIATRIC: Unremarkable All other review of systems found to be negative. PHYSICAL EXAMINATION: VITAL SIGNS: Please see below. GENERAL: Pleasant and cooperative. No acute distress. HEENT: PERRL. Extraocular movements intact. Clear conjunctiva CARDIOVASCULAR: Regular rate and rhythm. No murmurs, rubs, or gallops LUNGS: Clear to auscultation bilaterally. No wheezes. No rhonchi ABDOMEN: Soft, nontender, nondistended. Positive bowel sounds. Normal active bowel sounds NEUROLOGICAL: Alert and oriented times three. Cranial nerves II through XII grossly intact. Sensation grossly intact EXTREMITIES: 5\5 strength bilateral upper extremities. 5\5 strength right lower extremity. 4/5 strength in left lower extremity. bilat forearms with small ulcers LABORATORY DATA: Please see below. ASSESSMENT:81-year-old F with past medical history of CAD s/p CABG and chronic hypoxic respiratory failure on home 02, who presents status post fall with left femur fracture PLAN: 1. Rehab- PT/OT advance mobility and ADLs, strengthen/stretch/maintain ROM all 4 limbs 2. Ortho s/p fall with left greater trochanter femur fracture, WBAT, f/u with [facility] 3. Neuro- hx of TIA on ASA/Palvix and statin -peripheral polyneuropathy due to DM cont gabapentin 3. Cardiac- hx of CAD s/p CABG cont ASA and Plavix, betablockers -hx of CHF cont Entresto, spironolactone, daily weights- patient reporting she felt like her CHF was getting worse last night, but is better today, will start torsemide 10mg daily (she usually takes 20mg prn weight gain)- no crackles on exam or LE edema -HTN cont BP meds -HLD cont statin and fenofibrate 4. Resp- hx of chronic hypoxic respiratory failure on home 02, monitor for infection 5. Endo- hx of DM cont ISS and consistent carb diet, Levemir qHS added for hyperglycemia -hypothyroidism cont Synthroid 6. GI ppx- protonix 7. Psych- hx of anxiety/depression cont Zoloft 8. - monitor PVRs 9. Pain- tylenol, oxycodone 10. DVT ppx- lovenox 11. Derm- patient with bilat forearm ulcers that she reports usually goes away with a short course of oral steroids her PMD prescribes, cont prednisone 5mg daily and lotion, will refer to dermatology on d/c 12. Dispo tbd Allergies Coded Allergies: exenatide (Verified Allergy, Unknown, 10/05/21) atorvastatin (Verified Adverse Reaction, Intermediate, muscle pain, 10/05/21) metoclopramide (Verified Adverse Reaction, Intermediate, tremor, 10/05/21) Tetracyclines (Verified Adverse Reaction, Mild, N/V, 10/05/21) Vital Signs Vital Signs Date Time Temp Pulse Resp B/P (MAP) Pulse Ox O2 Delivery O2 Flow Rate FiO2 10/10/21 10:04 73 148/70 10/10/21 05:48 96.8 20 97 Nasal Cannula 2.0 Laboratory Data CBC/BMP Laboratory Tests 10/10/21 06:06 Labs 24H Laboratory Tests 2 10/09/21 11:23: Bedside Glucose (Misc Panel) 196H 10/09/21 17:19: Bedside Glucose (Misc Panel) 277H 10/09/21 21:39: Bedside Glucose (Misc Panel) 240H 10/10/21 06:06: Immature Granulocyte % (Auto) 0.6, Neutrophils (%) (Auto) 72.7H, Lymphocytes (%) (Auto) 17.0L, Monocytes (%) (Auto) 7.0, Eosinophils (%) (Auto) 2.3, Basophils (%) (Auto) 0.4, Neutrophils # (Auto) 3.7, Lymphocytes # (Auto) 0.9L, Monocytes # (Auto) 0.4, Eosinophils # (Auto) 0.1, Basophils # (Auto) 0.0, Nucleated Red Blood Cells % (auto) 0.0, Anion Gap 3L, Glomerular Filtration Rate 51.4, Calcium Level 8.5L Current Medications Current Medications Current Medications Medications (Trade) Dose Ordered Sig/Annabel Route PRN Reason Start Time Stop Time Status Last Admin Dose Admin Acetaminophen (Tylenol Tab) 1,000 mg TID PO 10/08/21 16:00 10/10/21 10:02 Aspirin (Ecotrin) 81 mg DAILY PO 10/09/21 09:00 10/10/21 10:01 Bisoprolol Fumarate (Zebeta) 5 mg DAILY PO 10/09/21 09:00 10/10/21 10:04 Carvedilol (COReg) 6.25 mg BID PO 10/08/21 21:00 10/10/21 10:03 Clopidogrel Bisulfate (PLAVix) 75 mg DAILY PO 10/09/21 09:00 10/10/21 10:03 Dextrose (Dextrose 50%) 25 ml ASDIRECTED PRN IV SEE LABEL COMMENTS 10/08/21 14:15 Docusate Sodium (Colace) 100 mg BID PO 10/08/21 21:00 10/10/21 10:02 Enoxaparin Sodium (Lovenox) 40 mg DAILY SC 10/09/21 09:00 10/10/21 10:01 Fenofibrate (Tricor) 145 mg DAILY PO 10/09/21 09:00 10/10/21 10:03 Gabapentin (Neurontin) 200 mg QHS PO 10/08/21 21:00 10/09/21 21:42 Glucagon (Glucagon) 1 mg ASDIRECTED PRN SC SEE LABEL COMMENTS 10/08/21 14:15 Glucose (Glucose) 16 GM ASDIRECTED PRN PO SEE LABEL COMMENTS 10/08/21 14:15 Insulin Detemir (Levemir Insulin) 5 units QHS SC 10/09/21 21:00 10/10/21 10:24 DC 10/09/21 21:43 Insulin Detemir (Levemir Insulin) 8 units QHS SC 10/10/21 21:00 UNV Insulin Human Lispro (HumaLOG INSULIN) SEE PROTOCOL TABLE AC SC 10/08/21 17:30 10/10/21 08:20 Insulin Human Lispro (HumaLOG INSULIN) SEE PROTOCOL TABLE QHS SC 10/08/21 21:00 10/08/21 21:15 Lactic Acid (Lac-Hydrin 12% Lotion) apply to bilat forea... BID TOP 10/09/21 21:00 10/10/21 10:18 Levothyroxine Sodium (Synthroid) 112 mcg DAILY@06 PO 10/09/21 06:00 10/10/21 05:55 Multivitamins (Ocuvite(I-Mazin)) 2 tab DAILY PO 10/09/21 09:00 10/10/21 10:01 Oxycodone HCl (Roxicodone, Oxyir) 5 mg Q4HP PRN PO MODERATE PAIN (PS 5-7) 10/08/21 14:15 10/09/21 14:10 Pantoprazole Sodium (Protonix) 40 mg BID PO 10/08/21 21:00 10/10/21 10:01 Pantoprazole Sodium (Protonix) 40 mg DAILY PO 10/09/21 09:00 10/08/21 14:27 DC Polyethylene Glycol (Miralax) 1 pkt DAILY PRN PO CONSTIPATION 10/08/21 14:15 Prednisone (Deltasone) 5 mg DAILY PO 10/09/21 14:30 10/10/21 10:03 Rosuvastatin Calcium (Crestor) 20 mg QHS PO 10/08/21 21:00 10/09/21 21:42 Sacubitril/ Valsartan (Entresto 24-26 Mg) 1 tab DAILY PO 10/09/21 09:00 10/10/21 10:01 Senna (Senokot) 1 tab QHS PO 10/08/21 21:00 10/08/21 21:14 Sertraline HCl (Zoloft) 100 mg DAILY PO 10/09/21 09:00 10/10/21 10:03 Spironolactone (Aldactone) 25 mg QAM PO 10/09/21 09:00 10/10/21 10:04 Topiramate (TopAMAX) 25 mg BID PO 10/08/21 21:00 10/10/21 10:04 Torsemide (Demadex) 10 mg DAILY PO 10/09/21 09:00 10/10/21 10:02 JANUARY GROVES MD Oct 10, 2021 10:26
[2021-10-10 14:00] VITALS: BP 116/54
[2021-10-10 20:00] VITALS: BP 145/72
[2021-10-10] MEDS: SENNA 8.6 MG TAB (SENOKOT) PO SCH (21:00)
[2021-10-10] MEDS: ROSUVASTATIN 10 MG TAB (CRESTOR) PO SCH (21:55)
[2021-10-10] MEDS: GABAPENTIN 100 MG CAP PO SCH (21:55)
[2021-10-10] MEDS: LEVEMIR (INSULIN DETEMIR) 1 UNITS/0.01ML SC SCH (21:56)
[2021-10-11] MEDS: LEVOTHYROXINE 112MCG TABLET (0.112MG) PO SCH (05:21)
[2021-10-11 06:00] VITALS: BP 141/64
[2021-10-11] MEDS: SPIRONOLACTONE 25 MG TAB PO SCH (08:27)
[2021-10-11] MEDS: HumaLOG INSULIN (NovoLOG) PER UNIT SC SCH ×4 (08:27→20:16)
[2021-10-11] MEDS: DOCUSATE SODIUM 100MG CAPSULE PO SCH ×2 (08:27→20:14)
[2021-10-11] MEDS: CARVedilol 6.25 MG TAB PO SCH ×2 (08:28→20:15)
[2021-10-11] MEDS: predniSONE 5 MG TAB PO SCH (08:28)
[2021-10-11] MEDS: ASPIRIN 81MG ENTERIC TABLET PO SCH (08:29)
[2021-10-11] MEDS: ENTRESTO 24-26MG TABLET (SACUBITRIL/VALSARTAN) PO SCH (08:29)
[2021-10-11] MEDS: TORSEMIDE 10 MG TABLET PO SCH (08:29)
[2021-10-11] MEDS: OCUVITE 1 TAB PO SCH (08:29)
[2021-10-11] MEDS: CLOPIDOGREL 75 MG TAB PO SCH (08:29)
[2021-10-11] MEDS: PANTOPRAZOLE 40MG TAB (PROTONIX) PO SCH ×2 (08:29→20:13)
[2021-10-11] MEDS: bisoproloL fumarate 5 MG TAB PO SCH (08:30)
[2021-10-11] MEDS: FENOFIBRATE 145MG TABLET (TRICOR) PO SCH (08:30)
[2021-10-11] MEDS: ACETAMINOPHEN 500 MG TAB PO SCH ×3 (08:30→20:14)
[2021-10-11] MEDS: TOPIRAMATE (TopAMAX) 25 MG TAB PO SCH ×2 (08:30→20:14)
[2021-10-11] MEDS: LACTIC ACID 12% LOTION 225 GM BTL TOP SCH ×2 (08:31→20:16)
[2021-10-11] MEDS: ENOXAPARIN 40MG/0.4ML SYRINGE (J1650 PER 10MG) SC SCH (08:31)
[2021-10-11] MEDS: SERTRALINE 100 MG TAB PO SCH (08:31)
[2021-10-11] MEDS: REMEDY PHYTOPLEX Z-GUARD PASTE 113GM TUBE (FROM STOREROOM PRODUCT) TOP SCH ×3 (08:32→20:15)
[2021-10-11] MEDS: oxyCODONE 5MG TAB PO PRN (11:23)
[2021-10-11 14:00] VITALS: BP 115/55
[2021-10-11 20:00] VITALS: BP 145/66
[2021-10-11] MEDS: GABAPENTIN 100 MG CAP PO SCH (20:14)
[2021-10-11] MEDS: ROSUVASTATIN 10 MG TAB (CRESTOR) PO SCH (20:14)
[2021-10-11] MEDS: SENNA 8.6 MG TAB (SENOKOT) PO SCH (20:14)
[2021-10-11] MEDS: LEVEMIR (INSULIN DETEMIR) 1 UNITS/0.01ML SC SCH (20:15)
[2021-10-12] MEDS: LEVOTHYROXINE 112MCG TABLET (0.112MG) PO SCH (05:47)
[2021-10-12 06:00] VITALS: BP 132/95
[2021-10-12 07:38] LABS: BASO % 0.4 % (0.0-1.0); EOS # 0.3 10^3/uL (0.0-0.5); EOS % 5.7 % (0.0-3.0); HEMATOCRIT 31.9 % (36.0-47.0); HEMOGLOBIN 9.8 g/dl (12.0-15.5); LYMPH # 1.4 10^3/uL (1.5-5.0); LYMPH % 24.7 % (24.0-44.0); MEAN CORPUSCULAR HEMOGLOBIN 30.7 pg (27.0-33.0); MEAN CORPUSCULAR HGB CONC 30.7 g/dl (32.0-36.5); MONO # 0.6 10^3/uL (0.0-0.8); MONO % 9.8 % (2.0-8.0); NEUTROPHILS # 3.3 10^3/uL (1.5-8.5); PLATELET COUNT, AUTOMATED 434 10^3/uL (150-450); RED BLOOD COUNT 3.19 10^6/uL (4.00-5.40); WHITE BLOOD COUNT 5.6 10^3/uL (4.0-10.0)
[2021-10-12 08:08] LABS: CALCIUM LEVEL 8.3 MG/DL (8.8-10.2); CREATININE FOR GFR 1.23 MG/DL (0.55-1.30); GLOMERULAR FILTRATION RATE 44.7 (>32); POTASSIUM SERUM 4.5 MEQ/L (3.5-5.1)
[2021-10-12] MEDS: CARVedilol 6.25 MG TAB PO SCH ×2 (08:24→21:11)
[2021-10-12] MEDS: SERTRALINE 100 MG TAB PO SCH (08:24)
[2021-10-12] MEDS: HumaLOG INSULIN (NovoLOG) PER UNIT SC SCH ×4 (08:24→21:00)
[2021-10-12] MEDS: bisoproloL fumarate 5 MG TAB PO SCH (08:25)
[2021-10-12] MEDS: CLOPIDOGREL 75 MG TAB PO SCH (08:25)
[2021-10-12] MEDS: OCUVITE 1 TAB PO SCH (08:25)
[2021-10-12] MEDS: TORSEMIDE 10 MG TABLET PO SCH ×2 (08:25→08:33)
[2021-10-12] MEDS: predniSONE 5 MG TAB PO SCH (08:25)
[2021-10-12] MEDS: ACETAMINOPHEN 500 MG TAB PO SCH ×3 (08:26→21:07)
[2021-10-12] MEDS: SPIRONOLACTONE 25 MG TAB PO SCH ×2 (08:26→08:33)
[2021-10-12] MEDS: FENOFIBRATE 145MG TABLET (TRICOR) PO SCH (08:26)
[2021-10-12] MEDS: ASPIRIN 81MG ENTERIC TABLET PO SCH (08:26)
[2021-10-12] MEDS: PANTOPRAZOLE 40MG TAB (PROTONIX) PO SCH ×2 (08:26→21:07)
[2021-10-12] MEDS: ENTRESTO 24-26MG TABLET (SACUBITRIL/VALSARTAN) PO SCH (08:26)
[2021-10-12] MEDS: ENOXAPARIN 40MG/0.4ML SYRINGE (J1650 PER 10MG) SC SCH (08:26)
[2021-10-12] MEDS: DOCUSATE SODIUM 100MG CAPSULE PO SCH ×2 (08:27→21:07)
[2021-10-12] MEDS: TOPIRAMATE (TopAMAX) 25 MG TAB PO SCH ×2 (08:27→21:12)
[2021-10-12] MEDS: REMEDY PHYTOPLEX Z-GUARD PASTE 113GM TUBE (FROM STOREROOM PRODUCT) TOP SCH ×3 (08:28→21:14)
[2021-10-12] MEDS: LACTIC ACID 12% LOTION 225 GM BTL TOP SCH ×2 (08:28→21:13)
[2021-10-12] MEDS: oxyCODONE 5MG TAB PO PRN (10:18)
[2021-10-12 14:00] VITALS: BP 121/53
[2021-10-12 20:00] VITALS: BP 173/70
[2021-10-12] MEDS: SENNA 8.6 MG TAB (SENOKOT) PO SCH (21:07)
[2021-10-12 21:11] VITALS: BP 130/60
[2021-10-12] MEDS: ROSUVASTATIN 10 MG TAB (CRESTOR) PO SCH (21:12)
[2021-10-12] MEDS: GABAPENTIN 100 MG CAP PO SCH (21:12)
[2021-10-12] MEDS: LEVEMIR (INSULIN DETEMIR) 1 UNITS/0.01ML SC SCH (21:12)
[2021-10-13] MEDS: LEVOTHYROXINE 112MCG TABLET (0.112MG) PO SCH (05:17)
[2021-10-13 06:00] VITALS: BP 156/70
[2021-10-13] MEDS: ENOXAPARIN 40MG/0.4ML SYRINGE (J1650 PER 10MG) SC SCH (07:59)
[2021-10-13] MEDS: OCUVITE 1 TAB PO SCH (07:59)
[2021-10-13] MEDS: HumaLOG INSULIN (NovoLOG) PER UNIT SC SCH ×4 (07:59→21:00)
[2021-10-13] MEDS: ASPIRIN 81MG ENTERIC TABLET PO SCH (07:59)
[2021-10-13] MEDS: TORSEMIDE 10 MG TABLET PO SCH (08:00)
[2021-10-13] MEDS: PANTOPRAZOLE 40MG TAB (PROTONIX) PO SCH ×2 (08:00→21:19)
[2021-10-13] MEDS: CARVedilol 6.25 MG TAB PO SCH ×2 (08:00→21:19)
[2021-10-13] MEDS: FENOFIBRATE 145MG TABLET (TRICOR) PO SCH (08:00)
[2021-10-13] MEDS: bisoproloL fumarate 5 MG TAB PO SCH (08:00)
[2021-10-13] MEDS: CLOPIDOGREL 75 MG TAB PO SCH (08:00)
[2021-10-13] MEDS: predniSONE 5 MG TAB PO SCH (08:00)
[2021-10-13] MEDS: SPIRONOLACTONE 25 MG TAB PO SCH (08:00)
[2021-10-13] MEDS: SERTRALINE 100 MG TAB PO SCH (08:01)
[2021-10-13] MEDS: ACETAMINOPHEN 500 MG TAB PO SCH ×3 (08:01→21:19)
[2021-10-13] MEDS: REMEDY PHYTOPLEX Z-GUARD PASTE 113GM TUBE (FROM STOREROOM PRODUCT) TOP SCH ×3 (08:01→21:21)
[2021-10-13] MEDS: TOPIRAMATE (TopAMAX) 25 MG TAB PO SCH ×2 (08:02→21:19)
[2021-10-13] MEDS: DOCUSATE SODIUM 100MG CAPSULE PO SCH ×2 (08:02→21:19)
[2021-10-13] MEDS: LACTIC ACID 12% LOTION 225 GM BTL TOP SCH ×2 (08:10→21:20)
[2021-10-13] MEDS: ENTRESTO 24-26MG TABLET (SACUBITRIL/VALSARTAN) PO SCH (13:07)
[2021-10-13 18:00] VITALS: BP 142/62
[2021-10-13 20:00] VITALS: BP 168/70
[2021-10-13] MEDS: GABAPENTIN 100 MG CAP PO SCH (21:18)
[2021-10-13] MEDS: ROSUVASTATIN 10 MG TAB (CRESTOR) PO SCH (21:18)
[2021-10-13] MEDS: LEVEMIR (INSULIN DETEMIR) 1 UNITS/0.01ML SC SCH (21:20)
[2021-10-13] MEDS: SENNA 8.6 MG TAB (SENOKOT) PO SCH (21:20)
[2021-10-14] MEDS: LEVOTHYROXINE 112MCG TABLET (0.112MG) PO SCH (05:10)
[2021-10-14 06:00] VITALS: BP 158/68
[2021-10-14] MEDS: TORSEMIDE 10 MG TABLET PO SCH (09:00)
[2021-10-14] MEDS: SPIRONOLACTONE 25 MG TAB PO SCH (09:00)
[2021-10-14] MEDS: HumaLOG INSULIN (NovoLOG) PER UNIT SC SCH ×4 (09:41→21:45)
[2021-10-14] MEDS: DOCUSATE SODIUM 100MG CAPSULE PO SCH ×2 (09:41→21:48)
[2021-10-14] MEDS: predniSONE 5 MG TAB PO SCH (09:42)
[2021-10-14] MEDS: ASPIRIN 81MG ENTERIC TABLET PO SCH (09:42)
[2021-10-14] MEDS: CARVedilol 6.25 MG TAB PO SCH ×2 (09:42→21:48)
[2021-10-14] MEDS: OCUVITE 1 TAB PO SCH (09:44)
[2021-10-14] MEDS: PANTOPRAZOLE 40MG TAB (PROTONIX) PO SCH ×2 (09:44→21:48)
[2021-10-14] MEDS: CLOPIDOGREL 75 MG TAB PO SCH (09:44)
[2021-10-14] MEDS: ACETAMINOPHEN 500 MG TAB PO SCH ×3 (09:45→21:46)
[2021-10-14] MEDS: ENTRESTO 24-26MG TABLET (SACUBITRIL/VALSARTAN) PO SCH (09:45)
[2021-10-14] MEDS: FENOFIBRATE 145MG TABLET (TRICOR) PO SCH (09:45)
[2021-10-14] MEDS: TOPIRAMATE (TopAMAX) 25 MG TAB PO SCH ×2 (09:46→21:48)
[2021-10-14] MEDS: SERTRALINE 100 MG TAB PO SCH (09:48)
[2021-10-14] MEDS: ENOXAPARIN 40MG/0.4ML SYRINGE (J1650 PER 10MG) SC SCH (09:49)
[2021-10-14] MEDS: bisoproloL fumarate 5 MG TAB PO SCH (09:49)
[2021-10-14] MEDS: LACTIC ACID 12% LOTION 225 GM BTL TOP SCH ×2 (09:53→21:54)
[2021-10-14] MEDS: REMEDY PHYTOPLEX Z-GUARD PASTE 113GM TUBE (FROM STOREROOM PRODUCT) TOP SCH ×3 (09:53→21:54)
[2021-10-14] MEDS: oxyCODONE 5MG TAB PO PRN (10:51)
[2021-10-14 14:00] VITALS: BP 156/70
[2021-10-14 20:00] VITALS: BP 143/64
[2021-10-14] MEDS: LEVEMIR (INSULIN DETEMIR) 1 UNITS/0.01ML SC SCH (21:46)
[2021-10-14] MEDS: ROSUVASTATIN 10 MG TAB (CRESTOR) PO SCH (21:47)
[2021-10-14] MEDS: GABAPENTIN 100 MG CAP PO SCH (21:47)
[2021-10-14] MEDS: SENNA 8.6 MG TAB (SENOKOT) PO SCH (21:48)
[2021-10-15 04:00] VITALS: BP 149/66
[2021-10-15] MEDS: LEVOTHYROXINE 112MCG TABLET (0.112MG) PO SCH (06:11)
[2021-10-15 06:36] LABS: BASO % 0.5 % (0.0-1.0); EOS # 0.5 10^3/uL (0.0-0.5); EOS % 8.7 % (0.0-3.0); HEMATOCRIT 32.3 % (36.0-47.0); HEMOGLOBIN 10.2 g/dl (12.0-15.5); LYMPH # 1.5 10^3/uL (1.5-5.0); LYMPH % 26.6 % (24.0-44.0); MEAN CORPUSCULAR HEMOGLOBIN 31.1 pg (27.0-33.0); MEAN CORPUSCULAR HGB CONC 31.6 g/dl (32.0-36.5); MEAN CORPUSCULAR VOLUME 98.5 fl (80.0-96.0); MONO # 0.6 10^3/uL (0.0-0.8); MONO % 9.9 % (2.0-8.0); NEUTROPHILS % 53.8 % (36.0-66.0); PLATELET COUNT, AUTOMATED 394 10^3/uL (150-450); RED BLOOD COUNT 3.28 10^6/uL (4.00-5.40); WHITE BLOOD COUNT 5.6 10^3/uL (4.0-10.0)
[2021-10-15 06:55] LABS: CALCIUM LEVEL 8.2 MG/DL (8.8-10.2); CREATININE FOR GFR 1.02 MG/DL (0.55-1.30); GLOMERULAR FILTRATION RATE 55.5 (>32); POTASSIUM SERUM 5.5 MEQ/L (3.5-5.1)
[2021-10-15] MEDS: OCUVITE 1 TAB PO SCH (08:37)
[2021-10-15] MEDS: ACETAMINOPHEN 500 MG TAB PO SCH ×3 (08:37→21:39)
[2021-10-15] MEDS: FENOFIBRATE 145MG TABLET (TRICOR) PO SCH (08:37)
[2021-10-15] MEDS: ENOXAPARIN 40MG/0.4ML SYRINGE (J1650 PER 10MG) SC SCH (08:37)
[2021-10-15] MEDS: PANTOPRAZOLE 40MG TAB (PROTONIX) PO SCH ×2 (08:38→21:38)
[2021-10-15] MEDS: TORSEMIDE 10 MG TABLET PO SCH (08:38)
[2021-10-15] MEDS: bisoproloL fumarate 5 MG TAB PO SCH (08:38)
[2021-10-15] MEDS: CARVedilol 6.25 MG TAB PO SCH ×2 (08:38→21:39)
[2021-10-15] MEDS: SERTRALINE 100 MG TAB PO SCH (08:38)
[2021-10-15] MEDS: SPIRONOLACTONE 25 MG TAB PO SCH (08:38)
[2021-10-15] MEDS: ASPIRIN 81MG ENTERIC TABLET PO SCH (08:39)
[2021-10-15] MEDS: TOPIRAMATE (TopAMAX) 25 MG TAB PO SCH ×2 (08:39→21:38)
[2021-10-15] MEDS: ENTRESTO 24-26MG TABLET (SACUBITRIL/VALSARTAN) PO SCH (08:39)
[2021-10-15] MEDS: predniSONE 5 MG TAB PO SCH (08:39)
[2021-10-15] MEDS: CLOPIDOGREL 75 MG TAB PO SCH (08:39)
[2021-10-15] MEDS: HumaLOG INSULIN (NovoLOG) PER UNIT SC SCH ×4 (08:40→21:00)
[2021-10-15] MEDS: DOCUSATE SODIUM 100MG CAPSULE PO SCH ×2 (08:41→21:38)
[2021-10-15] MEDS: LACTIC ACID 12% LOTION 225 GM BTL TOP SCH ×2 (09:20→21:40)
[2021-10-15] MEDS: REMEDY PHYTOPLEX Z-GUARD PASTE 113GM TUBE (FROM STOREROOM PRODUCT) TOP SCH ×3 (09:21→21:00)
[2021-10-15 09:57] LABS: CALCIUM LEVEL 8.1 MG/DL (8.8-10.2); CREATININE FOR GFR 1.24 MG/DL (0.55-1.30); GLOMERULAR FILTRATION RATE 44.3 (>32); POTASSIUM SERUM 4.5 MEQ/L (3.5-5.1)
--- NOTE | 2021-10-15 10:29 | IPNPDOC ---
Text Note Date of Service The patient was seen on 10/15/21. NOTE Subjective: 81-year-old female in rehab for an inoperable nondisplaced fracture involving the superior aspect of the greater trochanter. Seen and examined at bedside this morning. She is complaining of dysuria and frequency. She denies hematuria. She denies chest pain, shortness of breath, abdominal pain, nausea, vomiting, problems with bowel movements. Reports she is tolerating physical therapy well and is pleased with her improvement. Review of systems: 10 point review of system was negative except for what is noted in the HPI Physical exam: Head/Neck/Throat: Trachea midline, mucous membranes moist Eyes: Sclera anicteric, no erythema or discharge patient bilaterally Thorax: Normal respiratory effort on on 2 L nasal cannula, lungs clear to auscultation bilaterally, no wheezes/rales/rhonchi Cardiovascular: Normal rate, regular rhythm, normal S1, S2; no S3, S4, rubs/gallops/murmurs Abdomen: Bowel sounds present, soft/nontender/nondistended, no suprapubic t enderness Genitourinary: No CVA tenderness, no Mendez in place Musculoskeletal: Moving all extremities, no edema Skin: Warm, dry Neurologic: AAOx3, speech fluent and goal-directed, no focal deficits, grossly intact Labs: See below Imaging: Please see imaging section Assessment/plan: 81-year-old female in rehab for an inoperable nondisplaced fracture involving the superior aspect of the greater trochanter. #Urinary tract infection -Cephalexin 500 every 8 for 5 days #Nondisplaced left greater trochanter fracture -Continue with PT/OT #CAD -Status post CABG. Stable and no complaints of chest pain. Continue ambulatory cardiac medications #Congestive heart failure -No signs of acute exacerbation. Continue with ambulatory medications. #Chronic hypoxic respiratory failure -Patient is on 2 L nasal cannula at baseline. There is no signs of acute exacerbation. Recommend albuterol as needed. #TIA -No focal deficits appreciated on exam. Continue with aspirin and statin therapy #Diabetes mellitus -Metformin is held during hospitalization. Continue with basal and prandial regimen. Adjust according to needs. #Depression -C/w sertraline #Iron deficiency anemia -Hemoglobin is stable. #Hyperlipidemia -Continue rosuvastatin. #Peripheral neuropathy -Continue gabapentin #Hypothyroidism -Continue levothyroxine #DVT px -lovenox VS,Fishbone, I+O VS, Fishbone, I+O Laboratory Tests 10/15/21 06:16 10/15/21 09:22 Vital Signs Date Time Temp Pulse Resp B/P (MAP) Pulse Ox O2 Delivery O2 Flow Rate FiO2 10/15/21 08:38 66 149/66 10/15/21 04:00 98.3 18 95 Nasal Cannula 2.0 I&O- Last 24 Hours up to 6 AM 10/15/21 06:00 Intake Total 1115 ml Balance 1115 ml STEVAN MARIN M.D. Oct 15, 2021 10:29
[2021-10-15 14:00] VITALS: BP 118/56
--- NOTE | 2021-10-15 16:22 | IPNPDOC ---
PM&R Progress Note DATE OF SERVICE: Oct 11, 2021 Signal Tower Operator Progress Note Subjective: Patient stating she feels like she is getting stronger. Denies fever or chills. REVIEW OF SYSTEMS: The following is a completed review of systems and has been reviewed. Review of systems otherwise unremarkable. PAIN: Patient self reports minimal left hip pain EYES: No recent vision changes EARS, NOSE, & THROAT: No throat pain, or dysphagia, or rhinorrhea CARDIOVASCULAR: Denies chest pain or palpitations PULMONARY: Denies shortness of breath GASTROINTESTINAL: Denies constipation/diarrhea GENITOURINARY:denies dysuria MUSCULOSKELETAL: left femur fracture NEUROLOGICAL:+peripheral polyneuropathy HEMATOLOGICAL: denies easy bruising SKIN: bilat forearms with small ulcers PSYCHIATRIC: Unremarkable All other review of systems found to be negative. PHYSICAL EXAMINATION: VITAL SIGNS: Please see below. GENERAL: Pleasant and cooperative. No acute distress. HEENT: PERRL. Extraocular movements intact. Clear conjunctiva CARDIOVASCULAR: Regular rate and rhythm. No murmurs, rubs, or gallops LUNGS: Clear to auscultation bilaterally. No wheezes. No rhonchi ABDOMEN: Soft, nontender, nondistended. Positive bowel sounds. Normal active bowel sounds NEUROLOGICAL: Alert and oriented times three. Cranial nerves II through XII grossly intact. Sensation grossly intact EXTREMITIES: 5\5 strength bilateral upper extremities. 5\5 strength right lower extremity. 4/5 strength in left lower extremity. bilat forearms with small ulcers (healing) LABORATORY DATA: Please see below. ASSESSMENT:81-year-old F with past medical history of CAD s/p CABG and chronic hypoxic respiratory failure on home 02, who presents status post fall with left femur fracture PLAN: 1. Rehab- PT/OT advance mobility and ADLs, strengthen/stretch/maintain ROM all 4 limbs 2. Ortho s/p fall with left greater trochanter femur fracture, WBAT, f/u with [facility] 3. Neuro- hx of TIA on ASA/Plavix and statin -peripheral polyneuropathy due to DM cont gabapentin 3. Cardiac- hx of CAD s/p CABG cont ASA and Plavix, betablockers -hx of CHF cont Entresto, spironolactone, daily weights- patient reporting she felt like her CHF was getting worse last night, but is better today, wcont torsemide 10mg daily prn -HTN cont BP meds -HLD cont statin and fenofibrate 4. Resp- hx of chronic hypoxic respiratory failure on home 02, monitor for infection 5. Endo- hx of DM cont ISS and consistent carb diet, Levemir qHS added for hyperglycemia -hypothyroidism cont Synthroid 6. GI ppx- protonix 7. Psych- hx of anxiety/depression cont Zoloft 8. - monitor PVRs 9. Pain- tylenol, oxycodone 10. DVT ppx- lovenox 11. Derm- patient with bilat forearm ulcers that she reports usually goes away with a short course of oral steroids her PMD prescribes, cont prednisone 5mg daily and lotion, will refer to dermatology on d/c 12. Dispo tbd Functional status/barriers to discharge -patient is contact guard for functional transfers and ambulation in addition to ADL management. She will need continue PT and OT to advance to Mod-I prior to going home. Medically she is being monitored for fluid overload, she has been having episodes of hyperglycemia, and will need continued oversight. Allergies Coded Allergies: exenatide (Verified Allergy, Unknown, 10/05/21) atorvastatin (Verified Adverse Reaction, Intermediate, muscle pain, ) metoclopramide (Verified Adverse Reaction, Intermediate, tremor, 10/05/21) Tetracyclines (Verified Adverse Reaction, Mild, N/V, 10/05/21) Vital Signs Vital Signs Date Time Temp Pulse Resp B/P (MAP) Pulse Ox O2 Delivery O2 Flow Rate FiO2 10/15/21 14:00 98.2 61 17 98 Nasal Cannula 2.0 10/15/21 14:00 118/56 (76) Laboratory Data CBC/BMP Laboratory Tests 10/15/21 06:16 10/15/21 09:22 Labs 24H Laboratory Tests 2 10/14/21 16:28: Bedside Glucose (Misc Panel) 146H 10/14/21 20:42: Bedside Glucose (Misc Panel) 253H 10/15/21 06:10: Bedside Glucose (Misc Panel) 148H 10/15/21 06:16: Immature Granulocyte % (Auto) 0.5, Neutrophils (%) (Auto) 53.8, Lymphocytes (%) (Auto) 26.6, Monocytes (%) (Auto) 9.9H, Eosinophils (%) (Auto) 8.7H, Basophils (%) (Auto) 0.5, Neutrophils # (Auto) 3.0, Lymphocytes # (Auto) 1.5, Monocytes # (Auto) 0.6, Eosinophils # (Auto) 0.5, Basophils # (Auto) 0.0, Nucleated Red Blood Cells % (auto) 0.0, Anion Gap 4L, Glomerular Filtration Rate 55.5, Calcium Level 8.2L 10/15/21 09:22: Anion Gap 5L, Glomerular Filtration Rate 44.3, Calcium Level 8.1L 10/15/21 11:41: Bedside Glucose (Misc Panel) 354H Microbiology Microbiology 10/13/21 Urine Culture - Final, Complete Current Medications Current Medications Current Medications Medications (Trade) Dose Ordered Sig/Annabel Route PRN Reason Start Time Stop Time Status Last Admin Dose Admin Acetaminophen (Tylenol Tab) 1,000 mg TID PO 10/08/21 16:00 10/15/21 08:37 Aspirin (Ecotrin) 81 mg DAILY PO 10/09/21 09:00 10/15/21 08:39 Bisoprolol Fumarate (Zebeta) 5 mg DAILY PO 10/09/21 09:00 10/15/21 08:38 Carvedilol (COReg) 6.25 mg BID PO 10/08/21 21:00 10/15/21 08:38 Clopidogrel Bisulfate (PLAVix) 75 mg DAILY PO 10/09/21 09:00 10/15/21 08:39 Dextrose (Dextrose 50%) 25 ml ASDIRECTED PRN IV SEE LABEL COMMENTS 10/08/21 14:15 Docusate Sodium (Colace) 100 mg BID PO 10/08/21 21:00 10/15/21 08:41 Enoxaparin Sodium (Lovenox) 40 mg DAILY SC 10/09/21 09:00 10/15/21 08:37 Fenofibrate (Tricor) 145 mg DAILY PO 10/09/21 09:00 10/15/21 08:37 Gabapentin (Neurontin) 200 mg QHS PO 10/08/21 21:00 10/14/21 21:47 Glucagon (Glucagon) 1 mg ASDIRECTED PRN SC SEE LABEL COMMENTS 10/08/21 14:15 Glucose (Glucose) 16 GM ASDIRECTED PRN PO SEE LABEL COMMENTS 10/08/21 14:15 Insulin Detemir (Levemir Insulin) 5 units QHS SC 10/09/21 21:00 10/10/21 10:24 DC 10/09/21 21:43 Insulin Detemir (Levemir Insulin) 8 units BID SC 10/15/21 21:00 Insulin Detemir (Levemir Insulin) 8 units QHS SC 10/10/21 21:00 10/15/21 15:48 DC 10/14/21 21:46 Insulin Human Lispro (HumaLOG INSULIN) SEE PROTOCOL TABLE AC AL 10/08/21 17:30 10/15/21 12:24 Insulin Human Lispro (HumaLOG INSULIN) SEE PROTOCOL TABLE QHS AL 10/08/21 21:00 10/14/21 21:45 Lactic Acid (Lac-Hydrin 12% Lotion) apply to bil forea... BID TOP 10/09/21 21:00 10/15/21 09:20 Levothyroxine Sodium (Synthroid) 112 mcg DAILY@06 PO 10/09/21 06:00 10/15/21 06:11 Multivitamins (Ocuvite(I-Mazin)) 2 tab DAILY PO 10/09/21 09:00 10/15/21 08:37 Oxycodone HCl (Roxicodone, Oxyir) 5 mg Q4HP PRN PO MODERATE PAIN (PS 5-7) 10/08/21 14:15 10/14/21 10:51 Pantoprazole Sodium (Protonix) 40 mg BID PO 10/08/21 21:00 10/15/21 08:38 Pantoprazole Sodium (Protonix) 40 mg DAILY PO 10/09/21 09:00 10/08/21 14:27 DC Polyethylene Glycol (Miralax) 1 pkt DAILY PRN PO CONSTIPATION 10/08/21 14:15 Prednisone (Deltasone) 5 mg DAILY PO 10/09/21 14:30 10/15/21 08:39 Rosuvastatin Calcium (Crestor) 20 mg QHS PO 10/08/21 21:00 10/14/21 21:47 Sacubitril/ Valsartan (Entresto 24-26 Mg) 1 tab DAILY PO 10/09/21 09:00 10/15/21 08:39 Senna (Senokot) 1 tab QHS PO 10/08/21 21:00 10/14/21 21:48 Sertraline HCl (Zoloft) 100 mg DAILY PO 10/09/21 09:00 10/15/21 08:38 Spironolactone (Aldactone) 25 mg QAM PO 10/09/21 09:00 10/15/21 08:38 Topiramate (TopAMAX) 25 mg BID PO 10/08/21 21:00 10/15/21 08:39 Torsemide (Demadex) 10 mg DAILY PO 10/09/21 09:00 10/15/21 15:48 DC 10/15/21 08:38 Torsemide (Demadex) 10 mg DAILY PRN PO dyspnea/edema 10/16/21 09:00 JANUARY GROVES MD Oct 15, 2021 16:22
--- NOTE | 2021-10-15 16:22 | IPNPDOC ---
PM&R Progress Note DATE OF SERVICE: Oct 15, 2021 Safety Specialist Progress Note Subjective: Patient stating she has been having burning with urination and is uncomfortable. REVIEW OF SYSTEMS: The following is a completed review of systems and has been reviewed. Review of systems otherwise unremarkable. PAIN: Patient self reports minimal left hip pain EYES: No recent vision changes EARS, NOSE, & THROAT: No throat pain, or dysphagia, or rhinorrhea CARDIOVASCULAR: Denies chest pain or palpitations PULMONARY: Denies shortness of breath GASTROINTESTINAL: Denies constipation/diarrhea GENITOURINARY: +dysuria MUSCULOSKELETAL: left femur fracture NEUROLOGICAL:+peripheral polyneuropathy HEMATOLOGICAL: denies easy bruising SKIN: bilat forearms with small ulcers PSYCHIATRIC: Unremarkable All other review of systems found to be negative. PHYSICAL EXAMINATION: VITAL SIGNS: Please see below. GENERAL: Pleasant and cooperative. No acute distress. HEENT: PERRL. Extraocular movements intact. Clear conjunctiva CARDIOVASCULAR: Regular rate and rhythm. No murmurs, rubs, or gallops LUNGS: Clear to auscultation bilaterally. No wheezes. No rhonchi ABDOMEN: Soft, nontender, nondistended. Positive bowel sounds. Normal active bowel sounds NEUROLOGICAL: Alert and oriented times three. Cranial nerves II through XII grossly intact. Sensation grossly intact EXTREMITIES: 5\5 strength bilateral upper extremities. 5\5 strength right lower extremity. 4/5 strength in left lower extremity. bilat forearms with small ulcers (healing) LABORATORY DATA: Please see below. ASSESSMENT:81-year-old F with past medical history of CAD s/p CABG and chronic hypoxic respiratory failure on home 02, who presents status post fall with left femur fracture PLAN: 1. Rehab- PT/OT advance mobility and ADLs, strengthen/stretch/maintain ROM all 4 limbs 2. Ortho s/p fall with left greater trochanter femur fracture, WBAT, f/u with [facility] 3. Neuro- hx of TIA on ASA/Plavix and statin -peripheral polyneuropathy due to DM cont gabapentin 3. Cardiac- hx of CAD s/p CABG cont ASA and Plavix, betablockers -hx of CHF cont Entresto, spironolactone, daily weights- patient reporting she felt like her CHF was getting worse last night, but is better today, wcont torsemide 10mg daily prn -HTN cont BP meds -HLD cont statin and fenofibrate 4. Resp- hx of chronic hypoxic respiratory failure on home 02, monitor for infection 5. Endo- hx of DM cont ISS and consistent carb diet, Levemir qHS added for hyperglycemia -hypothyroidism cont Synthroid 6. GI ppx- protonix 7. Psych- hx of anxiety/depression cont Zoloft 8. - monitor PVRs 9. Pain- tylenol, oxycodone 10. DVT ppx- lovenox 11. Derm- patient with bilat forearm ulcers that she reports usually goes away with a short course of oral steroids her PMD prescribes, cont prednisone 5mg daily and lotion, will refer to dermatology on d/c 12. - patint complaining of dysuria- UCx from over the weekend discarded due to contamination, will treat her with Levaquin given UA was suspicious 13. Dispo tbd Functional status/barriers to discharge -patient is approaching Mod-I for functional transfers and ambulation in addition to ADL management. She will need continue PT and OT to advance to Mod-I prior to going home. Medically she is being monitored for fluid overload, she has been having episodes of hyperglycemia, and probable UTI, will need continued oversight. Allergies Coded Allergies: exenatide (Verified Allergy, Unknown, 10/05/21) atorvastatin (Verified Adverse Reaction, Intermediate, muscle pain, 10/05/21) metoclopramide (Verified Adverse Reaction, Intermediate, tremor, 10/05/21) Tetracyclines (Verified Adverse Reaction, Mild, N/V, 10/05/21) Vital Signs Vital Signs Date Time Temp Pulse Resp B/P (MAP) Pulse Ox O2 Delivery O2 Flow Rate FiO2 10/15/21 14:00 98.2 61 17 98 Nasal Cannula 2.0 10/15/21 14:00 118/56 (76) Laboratory Data CBC/BMP Laboratory Tests 10/15/21 06:16 10/15/21 09:22 Labs 24H Laboratory Tests 2 10/14/21 16:28: Bedside Glucose (Misc Panel) 146H 10/14/21 20:42: Bedside Glucose (Misc Panel) 253H 10/15/21 06:10: Bedside Glucose (Misc Panel) 148H 10/15/21 06:16: Immature Granulocyte % (Auto) 0.5, Neutrophils (%) (Auto) 53.8, Lymphocytes (%) (Auto) 26.6, Monocytes (%) (Auto) 9.9H, Eosinophils (%) (Auto) 8.7H, Basophils (%) (Auto) 0.5, Neutrophils # (Auto) 3.0, Lymphocytes # (Auto) 1.5, Monocytes # (Auto) 0.6, Eosinophils # (Auto) 0.5, Basophils # (Auto) 0.0, Nucleated Red Blood Cells % (auto) 0.0, Anion Gap 4L, Glomerular Filtration Rate 55.5, Calcium Level 8.2L 10/15/21 09:22: Anion Gap 5L, Glomerular Filtration Rate 44.3, Calcium Level 8.1L 10/15/21 11:41: Bedside Glucose (Misc Panel) 354H Microbiology Microbiology 10/13/21 Urine Culture - Final, Complete Current Medications Current Medications Current Medications Medications (Trade) Dose Ordered Sig/Annabel Route PRN Reason Start Time Stop Time Status Last Admin Dose Admin Acetaminophen (Tylenol Tab) 1,000 mg TID PO 10/08/21 16:00 10/15/21 08:37 Aspirin (Ecotrin) 81 mg DAILY PO 10/09/21 09:00 10/15/21 08:39 Bisoprolol Fumarate (Zebeta) 5 mg DAILY PO 10/09/21 09:00 10/15/21 08:38 Carvedilol (COReg) 6.25 mg BID PO 10/08/21 21:00 10/15/21 08:38 Clopidogrel Bisulfate (PLAVix) 75 mg DAILY PO 10/09/21 09:00 10/15/21 08:39 Dextrose (Dextrose 50%) 25 ml ASDIRECTED PRN IV SEE LABEL COMMENTS 10/08/21 14:15 Docusate Sodium (Colace) 100 mg BID PO 10/08/21 21:00 10/15/21 08:41 Enoxaparin Sodium (Lovenox) 40 mg DAILY SC 10/09/21 09:00 10/15/21 08:37 Fenofibrate (Tricor) 145 mg DAILY PO 10/09/21 09:00 10/15/21 08:37 Gabapentin (Neurontin) 200 mg QHS PO 10/08/21 21:00 10/14/21 21:47 Glucagon (Glucagon) 1 mg ASDIRECTED PRN SC SEE LABEL COMMENTS 10/08/21 14:15 Glucose (Glucose) 16 GM ASDIRECTED PRN PO SEE LABEL COMMENTS 10/08/21 14:15 Insulin Detemir (Levemir Insulin) 5 units QHS SC 10/09/21 21:00 10/10/21 10:24 DC 10/09/21 21:43 Insulin Detemir (Levemir Insulin) 8 units BID SC 10/15/21 21:00 Insulin Detemir (Levemir Insulin) 8 units QHS SC 10/10/21 21:00 10/15/21 15:48 DC 10/14/21 21:46 Insulin Human Lispro (HumaLOG INSULIN) SEE PROTOCOL TABLE AC SC 10/08/21 17:30 10/15/21 12:24 Insulin Human Lispro (HumaLOG INSULIN) SEE PROTOCOL TABLE QHS PR 10/08/21 21:00 10/14/21 21:45 Lactic Acid (Lac-Hydrin 12% Lotion) apply to bilat forea... BID TOP 10/09/21 21:00 10/15/21 09:20 Levothyroxine Sodium (Synthroid) 112 mcg DAILY@06 PO 10/09/21 06:00 10/15/21 06:11 Multivitamins (Ocuvite(I-Mazin)) 2 tab DAILY PO 10/09/21 09:00 10/15/21 08:37 Oxycodone HCl (Roxicodone, Oxyir) 5 mg Q4HP PRN PO MODERATE PAIN (PS 5-7) 10/08/21 14:15 10/14/21 10:51 Pantoprazole Sodium (Protonix) 40 mg BID PO 10/08/21 21:00 10/15/21 08:38 Pantoprazole Sodium (Protonix) 40 mg DAILY PO 10/09/21 09:00 10/08/21 14:27 DC Polyethylene Glycol (Miralax) 1 pkt DAILY PRN PO CONSTIPATION 10/08/21 14:15 Prednisone (Deltasone) 5 mg DAILY PO 10/09/21 14:30 10/15/21 08:39 Rosuvastatin Calcium (Crestor) 20 mg QHS PO 10/08/21 21:00 10/14/21 21:47 Sacubitril/ Valsartan (Entresto 24-26 Mg) 1 tab DAILY PO 10/09/21 09:00 10/15/21 08:39 Senna (Senokot) 1 tab QHS PO 10/08/21 21:00 10/14/21 21:48 Sertraline HCl (Zoloft) 100 mg DAILY PO 10/09/21 09:00 10/15/21 08:38 Spironolactone (Aldactone) 25 mg QAM PO 10/09/21 09:00 10/15/21 08:38 Topiramate (TopAMAX) 25 mg BID PO 10/08/21 21:00 10/15/21 08:39 Torsemide (Demadex) 10 mg DAILY PO 10/09/21 09:00 10/15/21 15:48 DC 10/15/21 08:38 Torsemide (Demadex) 10 mg DAILY PRN PO dyspnea/edema 10/16/21 09:00 JANUARY GROVES MD Oct 15, 2021 16:22
[2021-10-15] MEDS: LACTOBACILLUS ACIDOPHILUS CAP (BACID) PO SCH ×2 (17:32→21:38)
[2021-10-15] MEDS: LevoFLOXacin 250 MG TABLET PO SCH (17:49)
[2021-10-15 20:00] VITALS: BP 156/84
[2021-10-15] MEDS: SENNA 8.6 MG TAB (SENOKOT) PO SCH (21:38)
[2021-10-15] MEDS: ROSUVASTATIN 10 MG TAB (CRESTOR) PO SCH (21:38)
[2021-10-15] MEDS: GABAPENTIN 100 MG CAP PO SCH (21:38)
[2021-10-15] MEDS: LEVEMIR (INSULIN DETEMIR) 1 UNITS/0.01ML SC SCH (21:39)
[2021-10-16] MEDS: LevoFLOXacin 250 MG TABLET PO SCH (05:18)
[2021-10-16] MEDS: LEVOTHYROXINE 112MCG TABLET (0.112MG) PO SCH (05:19)
[2021-10-16 05:43] VITALS: BP 158/71
[2021-10-16] MEDS ORDERED: TORSEMIDE 10 MG TABLET PO PRN (09:00)
[2021-10-16] MEDS: ENTRESTO 24-26MG TABLET (SACUBITRIL/VALSARTAN) PO SCH (09:22)
[2021-10-16] MEDS: DOCUSATE SODIUM 100MG CAPSULE PO SCH ×2 (09:22→21:17)
[2021-10-16] MEDS: CARVedilol 6.25 MG TAB PO SCH ×2 (09:25→21:18)
[2021-10-16] MEDS: OCUVITE 1 TAB PO SCH (09:26)
[2021-10-16] MEDS: CLOPIDOGREL 75 MG TAB PO SCH (09:26)
[2021-10-16] MEDS: PANTOPRAZOLE 40MG TAB (PROTONIX) PO SCH ×2 (09:26→21:18)
[2021-10-16] MEDS: LACTOBACILLUS ACIDOPHILUS CAP (BACID) PO SCH ×4 (09:27→21:18)
[2021-10-16] MEDS: HumaLOG INSULIN (NovoLOG) PER UNIT SC SCH ×4 (09:28→21:00)
[2021-10-16] MEDS: bisoproloL fumarate 5 MG TAB PO SCH (09:28)
[2021-10-16] MEDS: ASPIRIN 81MG ENTERIC TABLET PO SCH (09:28)
[2021-10-16] MEDS: FENOFIBRATE 145MG TABLET (TRICOR) PO SCH (09:28)
[2021-10-16] MEDS: predniSONE 5 MG TAB PO SCH (09:28)
[2021-10-16] MEDS: SERTRALINE 100 MG TAB PO SCH (09:28)
[2021-10-16] MEDS: LEVEMIR (INSULIN DETEMIR) 1 UNITS/0.01ML SC SCH ×2 (09:29→21:19)
[2021-10-16] MEDS: TOPIRAMATE (TopAMAX) 25 MG TAB PO SCH ×2 (09:29→21:17)
[2021-10-16] MEDS: SPIRONOLACTONE 25 MG TAB PO SCH (09:30)
[2021-10-16] MEDS: ENOXAPARIN 40MG/0.4ML SYRINGE (J1650 PER 10MG) SC SCH (09:31)
[2021-10-16] MEDS: ACETAMINOPHEN 500 MG TAB PO SCH ×3 (09:31→21:18)
[2021-10-16] MEDS: LACTIC ACID 12% LOTION 225 GM BTL TOP SCH ×2 (09:32→21:20)
[2021-10-16] MEDS: REMEDY PHYTOPLEX Z-GUARD PASTE 113GM TUBE (FROM STOREROOM PRODUCT) TOP SCH ×3 (09:32→21:00)
--- NOTE | 2021-10-16 12:44 | IPNPDOC ---
PM&R Progress Note DATE OF SERVICE: Oct 16, 2021 Family Engagement Specialist Progress Note Subjective: Patient feels ready to go home tomorrow and has family support. REVIEW OF SYSTEMS: The following is a completed review of systems and has been reviewed. Review of systems otherwise unremarkable. PAIN: Patient self reports minimal left hip pain EYES: No recent vision changes EARS, NOSE, & THROAT: No throat pain, or dysphagia, or rhinorrhea CARDIOVASCULAR: Denies chest pain or palpitations PULMONARY: Denies shortness of breath GASTROINTESTINAL: Denies constipation/diarrhea GENITOURINARY: +dysuria (improving) MUSCULOSKELETAL: left femur fracture NEUROLOGICAL:+peripheral polyneuropathy HEMATOLOGICAL: denies easy bruising SKIN: bilat forearms with small ulcers PSYCHIATRIC: Unremarkable All other review of systems found to be negative. PHYSICAL EXAMINATION: VITAL SIGNS: Please see below. GENERAL: Pleasant and cooperative. No acute distress. HEENT: PERRL. Extraocular movements intact. Clear conjunctiva CARDIOVASCULAR: Regular rate and rhythm. No murmurs, rubs, or gallops LUNGS: Clear to auscultation bilaterally. No wheezes. No rhonchi ABDOMEN: Soft, nontender, nondistended. Positive bowel sounds. Normal active bowel sounds NEUROLOGICAL: Alert and oriented times three. Cranial nerves II through XII grossly intact. Sensation grossly intact EXTREMITIES: 5\5 strength bilateral upper extremities. 5\5 strength right lower extremity. 4/5 strength in left lower extremity. bilat forearms with small ulcers (healing) LABORATORY DATA: Please see below. ASSESSMENT:81-year-old F with past medical history of CAD s/p CABG and chronic hypoxic respiratory failure on home 02, who presents status post fall with left femur fracture PLAN: 1. Rehab- PT/OT advance mobility and ADLs, strengthen/stretch/maintain ROM all 4 limbs 2. Ortho s/p fall with left greater trochanter femur fracture, WBAT, f/u with [facility] 3. Neuro- hx of TIA on ASA/Plavix and statin -peripheral polyneuropathy due to DM cont gabapentin 3. Cardiac- hx of CAD s/p CABG cont ASA and Plavix, betablockers -hx of CHF cont Entresto, spironolactone, daily weights-cont torsemide 10mg daily prn -HTN cont BP meds -HLD cont statin and fenofibrate 4. Resp- hx of chronic hypoxic respiratory failure on home 02, monitor for infection 5. Endo- hx of DM cont ISS and consistent carb diet, Levemir qHS added for hyperglycemia -hypothyroidism cont Synthroid 6. GI ppx- protonix 7. Psych- hx of anxiety/depression cont Zoloft 8. - monitor PVRs 9. Pain- tylenol, oxycodone 10. DVT ppx- lovenox 11. Derm- patient with bilat forearm ulcers that she reports usually goes away with a short course of oral steroids her PMD prescribes, cont prednisone 5mg daily and lotion, will refer to dermatology on d/c 12. - patient complaining of dysuria- UCx from over the weekend discarded due to contamination, will treat her with Levaquin given UA was suspicious-dysuria improving 13. [id number] to home Functional status/barriers to discharge -patient is Mod-I for functional transfers and ambulation in addition to ADL management and will start room privileges today. Medically she is being monitored for fluid overload, she has been having episodes of hyperglycemia which is improving, she is currently receiving treatment for UTI, safe for discharge 10-17-21. Allergies Coded Allergies: exenatide (Verified Allergy, Unknown, 10/05/21) atorvastatin (Verified Adverse Reaction, Intermediate, muscle pain, 10/05/21) metoclopramide (Verified Adverse Reaction, Intermediate, tremor, 10/05/21) Tetracyclines (Verified Adverse Reaction, Mild, N/V, 10/05/21) Vital Signs Vital Signs Date Time Temp Pulse Resp B/P (MAP) Pulse Ox O2 Delivery O2 Flow Rate FiO2 10/16/21 09:25 61 125/58 10/16/21 05:43 97.3 18 95 Nasal Cannula 2.0 Laboratory Data Labs 24H Laboratory Tests 2 10/15/21 16:50: Bedside Glucose (Misc Panel) 204H 10/15/21 17:30: Urine Color YELLOW, Urine Appearance CLEAR, Urine pH 5.0, Urine Specific [place] 1.013, Urine Protein NEGATIVE, Urine Glucose (UA) NEGATIVE, Urine Ketones NEGATIVE, Urine Blood NEGATIVE, Urine Nitrite NEGATIVE, Urine Bilirubin NEGATIVE, Urine Urobilinogen 0.2, Urine Leukocyte Esterase NEGATIVE, Urine WBC (Auto) 2, Urine RBC (Auto) 0, Urine Hyaline Casts (Auto) 0, Urine Bacteria (Auto) NEGATIVE, Urine Squamous Epithelial Cells 0, Urine Sperm (Auto) 10/15/21 19:28: Bedside Glucose (Misc Panel) 147H 10/16/21 05:21: Bedside Glucose (Misc Panel) 106 10/16/21 11:23: Bedside Glucose (Misc Panel) 271H Microbiology Microbiology 10/13/21 Urine Culture - Final, Complete Current Medications Current Medications Current Medications Medications (Trade) Dose Ordered Sig/Annabel Route PRN Reason Start Time Stop Time Status Last Admin Dose Admin Acetaminophen (Tylenol Tab) 1,000 mg TID PO 10/08/21 16:00 10/16/21 09:31 Aspirin (Ecotrin) 81 mg DAILY PO 10/09/21 09:00 10/16/21 09:28 Bisoprolol Fumarate (Zebeta) 5 mg DAILY PO 10/09/21 09:00 10/16/21 09:28 Carvedilol (COReg) 6.25 mg BID PO 10/08/21 21:00 10/16/21 09:25 Clopidogrel Bisulfate (PLAVix) 75 mg DAILY PO 10/09/21 09:00 10/16/21 09:26 Dextrose (Dextrose 50%) 25 ml ASDIRECTED PRN IV SEE LABEL COMMENTS 10/08/21 14:15 Docusate Sodium (Colace) 100 mg BID PO 10/08/21 21:00 10/16/21 09:22 Enoxaparin Sodium (Lovenox) 40 mg DAILY SC 10/09/21 09:00 10/16/21 09:31 Fenofibrate (Tricor) 145 mg DAILY PO 10/09/21 09:00 10/16/21 09:28 Gabapentin (Neurontin) 200 mg QHS PO 10/08/21 21:00 10/15/21 21:38 Glucagon (Glucagon) 1 mg ASDIRECTED PRN SC SEE LABEL COMMENTS 10/08/21 14:15 Glucose (Glucose) 16 GM ASDIRECTED PRN PO SEE LABEL COMMENTS 10/08/21 14:15 Insulin Detemir (Levemir Insulin) 5 units QHS SC 10/09/21 21:00 10/10/21 10:24 DC 10/09/21 21:43 Insulin Detemir (Levemir Insulin) 8 units BID SC 10/15/21 21:00 10/16/21 09:29 Insulin Detemir (Levemir Insulin) 8 units QHS SC 10/10/21 21:00 10/15/21 15:48 DC 10/14/21 21:46 Insulin Human Lispro (HumaLOG INSULIN) SEE PROTOCOL TABLE AC SC 10/08/21 17:30 10/16/21 09:28 Insulin Human Lispro (HumaLOG INSULIN) SEE PROTOCOL TABLE QHS SC 10/08/21 21:00 10/14/21 21:45 Lactic Acid (Lac-Hydrin 12% Lotion) apply to bilat forea... BID TOP 10/09/21 21:00 10/16/21 09:32 Lactobacillus Acidophilus (Bacid) 1 ea ACHS PO 10/15/21 17:30 10/16/21 09:27 Levofloxacin (Levaquin) 250 mg DAILY@06 PO 10/15/21 06:00 10/17/21 06:01 10/16/21 05:18 Levothyroxine Sodium (Synthroid) 112 mcg DAILY@06 PO 10/09/21 06:00 10/16/21 05:19 Multivitamins (Ocuvite(I-Mazin)) 2 tab DAILY PO 10/09/21 09:00 10/16/21 09:26 Oxycodone HCl (Roxicodone, Oxyir) 5 mg Q4HP PRN PO MODERATE PAIN (PS 5-7) 10/08/21 14:15 10/14/21 10:51 Pantoprazole Sodium (Protonix) 40 mg BID PO 10/08/21 21:00 10/16/21 09:26 Pantoprazole Sodium (Protonix) 40 mg DAILY PO 10/09/21 09:00 10/08/21 14:27 DC Polyethylene Glycol (Miralax) 1 pkt DAILY PRN PO CONSTIPATION 10/08/21 14:15 Prednisone (Deltasone) 5 mg DAILY PO 10/09/21 14:30 10/16/21 09:28 Rosuvastatin Calcium (Crestor) 20 mg QHS PO 10/08/21 21:00 10/15/21 21:38 Sacubitril/ Valsartan (Entresto 24-26 Mg) 1 tab DAILY PO 10/09/21 09:00 10/16/21 09:22 Senna (Senokot) 1 tab QHS PO 10/08/21 21:00 10/15/21 21:38 Sertraline HCl (Zoloft) 100 mg DAILY PO 10/09/21 09:00 10/16/21 09:28 Spironolactone (Aldactone) 25 mg QAM PO 10/09/21 09:00 10/16/21 09:30 Topiramate (TopAMAX) 25 mg BID PO 10/08/21 21:00 10/16/21 09:29 Torsemide (Demadex) 10 mg DAILY PO 10/09/21 09:00 10/15/21 15:48 DC 10/15/21 08:38 Torsemide (Demadex) 10 mg DAILY PRN PO dyspnea/edema 10/16/21 09:00 JANUARY GROVES MD Oct 16, 2021 12:44
[2021-10-16 14:00] VITALS: BP 134/63
[2021-10-16 20:00] VITALS: BP 123/68
[2021-10-16] MEDS: SENNA 8.6 MG TAB (SENOKOT) PO SCH (21:18)
[2021-10-16] MEDS: ROSUVASTATIN 10 MG TAB (CRESTOR) PO SCH (21:18)
[2021-10-16] MEDS: GABAPENTIN 100 MG CAP PO SCH (21:18)
[2021-10-17 05:00] VITALS: BP 132/62
[2021-10-17] MEDS: LevoFLOXacin 250 MG TABLET PO SCH (05:20)
[2021-10-17] MEDS: LEVOTHYROXINE 112MCG TABLET (0.112MG) PO SCH (05:20)
[2021-10-17] MEDS: HumaLOG INSULIN (NovoLOG) PER UNIT SC SCH ×2 (07:16→12:05)
[2021-10-17 07:22] LABS: BASO % 0.3 % (0.0-1.0); EOS # 0.4 10^3/uL (0.0-0.5); EOS % 3.6 % (0.0-3.0); HEMOGLOBIN 10.5 g/dl (12.0-15.5); LYMPH # 0.9 10^3/uL (1.5-5.0); LYMPH % 9.3 % (24.0-44.0); MEAN CORPUSCULAR HEMOGLOBIN 30.3 pg (27.0-33.0); MEAN CORPUSCULAR HGB CONC 30.9 g/dl (32.0-36.5); MEAN CORPUSCULAR VOLUME 98.3 fl (80.0-96.0); MONO # 0.8 10^3/uL (0.0-0.8); MONO % 7.5 % (2.0-8.0); NEUTROPHILS # 7.8 10^3/uL (1.5-8.5); NEUTROPHILS % 78.9 % (36.0-66.0); PLATELET COUNT, AUTOMATED 339 10^3/uL (150-450); RED BLOOD COUNT 3.46 10^6/uL (4.00-5.40)
[2021-10-17 07:52] LABS: CALCIUM LEVEL 8.5 MG/DL (8.8-10.2); CREATININE FOR GFR 0.98 MG/DL (0.55-1.30); GLOMERULAR FILTRATION RATE 58.1 (>32); POTASSIUM SERUM 3.9 MEQ/L (3.5-5.1)
[2021-10-17] MEDS: LEVEMIR (INSULIN DETEMIR) 1 UNITS/0.01ML SC SCH (07:59)
[2021-10-17] MEDS: SERTRALINE 100 MG TAB PO SCH (08:15)
[2021-10-17] MEDS: ENOXAPARIN 40MG/0.4ML SYRINGE (J1650 PER 10MG) SC SCH (08:15)
[2021-10-17] MEDS: FENOFIBRATE 145MG TABLET (TRICOR) PO SCH (08:15)
[2021-10-17] MEDS: LACTOBACILLUS ACIDOPHILUS CAP (BACID) PO SCH ×2 (08:15→12:05)
[2021-10-17] MEDS: ASPIRIN 81MG ENTERIC TABLET PO SCH (08:15)
[2021-10-17 08:16] VITALS: BP 132/62
[2021-10-17] MEDS: DOCUSATE SODIUM 100MG CAPSULE PO SCH (08:16)
[2021-10-17] MEDS: bisoproloL fumarate 5 MG TAB PO SCH (08:16)
[2021-10-17] MEDS: CARVedilol 6.25 MG TAB PO SCH (08:16)
[2021-10-17] MEDS: ENTRESTO 24-26MG TABLET (SACUBITRIL/VALSARTAN) PO SCH (08:16)
[2021-10-17] MEDS: OCUVITE 1 TAB PO SCH (08:16)
[2021-10-17] MEDS: PANTOPRAZOLE 40MG TAB (PROTONIX) PO SCH (08:17)
[2021-10-17] MEDS: predniSONE 5 MG TAB PO SCH (08:17)
[2021-10-17] MEDS: TOPIRAMATE (TopAMAX) 25 MG TAB PO SCH (08:17)
[2021-10-17] MEDS: SPIRONOLACTONE 25 MG TAB PO SCH (08:17)
[2021-10-17] MEDS: ACETAMINOPHEN 500 MG TAB PO SCH ×2 (08:17→12:58)
[2021-10-17] MEDS: CLOPIDOGREL 75 MG TAB PO SCH (08:17)
[2021-10-17] MEDS: REMEDY PHYTOPLEX Z-GUARD PASTE 113GM TUBE (FROM STOREROOM PRODUCT) TOP SCH (08:18)
[2021-10-17] MEDS: LACTIC ACID 12% LOTION 225 GM BTL TOP SCH (08:18)
[2021-10-17] MEDS ORDERED: ROSU20TA5 PO (10:34)
[2021-10-17] MEDS ORDERED: VICT18IN2 SC (10:34)
[2021-10-17] MEDS ORDERED: SYNT112T2 PO (10:34)
[2021-10-17] MEDS ORDERED: BISO5TAB14 PO (10:34)
[2021-10-17] MEDS ORDERED: PLAV1TAB2 PO (10:34)
[2021-10-17] MEDS ORDERED: METF-838 PO (10:34)
[2021-10-17] MEDS ORDERED: GABA-1171 PO (10:34)
[2021-10-17] MEDS ORDERED: FENO160T10 PO (10:34)
[2021-10-17] MEDS ORDERED: SPIR-10 PO (10:34)
[2021-10-17] MEDS ORDERED: ZOLO100T PO (10:34)
[2021-10-17] MEDS ORDERED: CARV6.25 PO (10:34)
[2021-10-17] MEDS ORDERED: TOPI25TA10 PO (10:34)
[2021-10-17] MEDS ORDERED: ENTR1TAB PO (10:34)
[2021-10-17] MEDS ORDERED: MYRB50TA PO (10:34)
[2021-10-17] MEDS ORDERED: ASPI81TA26 PO (10:34)
== END 2021-10-17 13:10 | disposition home health service (06) | DRG 560 ==
LOC: M PM&R 14:30
PROVIDERS: ADMIT Physical Medicine & Rehabilitation; ATTEND Physical Medicine & Rehabilitation
DX: S72.115D Nondisplaced fracture of greater trochanter of left femur, subsequent encounter for closed fracture with routine healing (principal); J96.11 Chronic respiratory failure with hypoxia; I25.10 Atherosclerotic heart disease of native coronary artery without angina pectoris; I50.9 Heart failure, unspecified; E11.42 Type 2 diabetes mellitus with diabetic polyneuropathy; F32.A Depression, unspecified; D50.9 Iron deficiency anemia, unspecified; E78.5 Hyperlipidemia, unspecified; E03.9 Hypothyroidism, unspecified; Z74.09 Other reduced mobility; Z74.1 Need for assistance with personal care; W18.09XD Striking against other object with subsequent fall, subsequent encounter; Y92.009 Unspecified place in unspecified non-institutional (private) residence as the place of occurrence of the external cause; Y93.9 Activity, unspecified; Y99.8 Other external cause status; R53.1 Weakness; Z98.41 Cataract extraction status, right eye; Z98.42 Cataract extraction status, left eye; Z95.5 Presence of coronary angioplasty implant and graft; Z99.81 Dependence on supplemental oxygen; I11.0 Hypertensive heart disease with heart failure; L98.499 Non-pressure chronic ulcer of skin of other sites with unspecified severity; Z79.02 Long term (current) use of antithrombotics/antiplatelets; Z79.82 Long term (current) use of aspirin; Z79.84 Long term (current) use of oral hypoglycemic drugs; Z88.8 Allergy status to other drugs, medicaments and biological substances; Z66 Do not resuscitate; Z87.891 Personal history of nicotine dependence

== ENCOUNTER → 2021-11-16 | Outpatient (REF) | payer MEDICARE, BC ==
[~2021-11-16] MED LIST changes: +METF-838 PO
[2021-11-16 18:29] LABS: AMORPHOUS SEDIMENT SMALL (NEGATIVE); APPEARANCE, URINE HAZY (CLEAR); BACTERIA, URINE AUTO NEGATIVE (NEGATIVE); BILIRUBIN, URINE AUTO NEGATIVE (NEGATIVE); BLOOD, URINE BLOOD NEGATIVE (NEGATIVE); COLOR, URINE YELLOW (YELLOW); GLUCOSE, URINE (UA) AUTO NEGATIVE (NEGATIVE); KETONE, URINE AUTO TRACE mg/dL (NEGATIVE); LEUKOCYTE ESTERASE, URINE AUTO 3+ (NEGATIVE); MUCUS, URINE SMALL (NEGATIVE); NITRITE, URINE AUTO NEGATIVE (NEGATIVE); PROTEIN, URINE AUTO NEGATIVE (NEGATIVE); RBC, URINE AUTO 4 /HPF (0-3); SPECIFIC GRAVITY URINE AUTO 1.025 (1.002-1.035); SQUAMOUS EPITHELIAL CELL UR AU 1 /HPF (0-6); WBC, URINE AUTO 49 /HPF (0-3)
== END ==
LOC: M SMT 16:56
PROVIDERS: ATTEND Physician Assistant
DX: N39.0 Urinary tract infection, site not specified (principal)

== ENCOUNTER → 2021-11-26 | Outpatient (REF) | payer MEDICARE, BC | LOC: M LAB REF 13:49 | PROVIDERS: ATTEND Nurse Practitioner Family | DX: L30.9 Dermatitis, unspecified (principal) ==

== ENCOUNTER → 2021-12-21 | Outpatient (REF) | payer MEDICARE, BC ==
[2021-12-21 17:52] LABS: APPEARANCE, URINE MANUAL CLOUDY (CLEAR); BILIRUBIN, URINE MANUAL OBSCURED (NEGATIVE); COLOR, URINE MANUAL ORANGE (YELLOW); GLUCOSE, URINE (UA) MANUAL OBSCURED mg/dL (NEGATIVE); KETONE, URINE MANUAL OBSCURED mg/dL (NEGATIVE); LEUKOCYTE ESTERASE, URINE MAN OBSCURED (NEGATIVE); NITRITE, URINE MANUAL OBSCURED (NEGATIVE); PH,URINE MAN OBSCURED UNITS (5.0 - 7.0); PROTEIN, URINE MANUAL OBSCURED mg/dL (NEGATIVE); UROBILINOGEN, URINE MANUAL OBSCURED mg/dl (NORMAL)
[2021-12-21 17:53] LABS: BLOOD URINE MANUAL OBSCURED (NEGATIVE)
[2021-12-21 17:54] LABS: BACTERIA, URINE MOD AMOUNT; HYALINE CAST, URINE NONE SEEN /lpf (0-1); RBC, URINE NONE SEEN /hpf (0-3); SQUAMOUS EPITHELIAL CELL URINE NONE SEEN /hpf (SMALL AMT); WBC, URINE 30-40 /hpf (0-3)
== END ==
LOC: M SMT 16:58
PROVIDERS: ATTEND Physician Assistant
DX: N39.0 Urinary tract infection, site not specified (principal)

== ENCOUNTER → 2021-12-25 | Outpatient (REF) | payer MEDICARE, BC ==
[2021-12-25 18:00] LABS: APPEARANCE, URINE MANUAL CLOUDY (CLEAR); COLOR, URINE MANUAL ORANGE (YELLOW)
[2021-12-25 18:01] LABS: BILIRUBIN, URINE MANUAL OBSCURED (NEGATIVE); GLUCOSE, URINE (UA) MANUAL OBSCURED mg/dL (NEGATIVE); KETONE, URINE MANUAL OBSCURED mg/dL (NEGATIVE); NITRITE, URINE MANUAL OBSCURED (NEGATIVE); PROTEIN, URINE MANUAL OBSCURED mg/dL (NEGATIVE); UROBILINOGEN, URINE MANUAL OBSCURED mg/dl (NORMAL)
[2021-12-25 18:02] LABS: BLOOD URINE MANUAL OBSCURED (NEGATIVE); LEUKOCYTE ESTERASE, URINE MAN OBSCURED (NEGATIVE)
[2021-12-25 18:16] LABS: SQUAMOUS EPITHELIAL CELL URINE NONE SEEN /hpf (SMALL AMT)
[2021-12-25 18:17] LABS: AMORPHOUS SEDIMENT, URINE LARGE AMOUNT (NEGATIVE); BACTERIA, URINE NONE SEEN; HYALINE CAST, URINE NONE SEEN /lpf (0-1); RENAL EPITHELIAL CELLS, URINE SMALL AMOUNT /hpf
== END ==
LOC: M SMT 16:51
PROVIDERS: ATTEND Physician Assistant
DX: R30.0 Dysuria (principal)

== ENCOUNTER → 2022-02-25 | Outpatient (CLI) | payer MEDICARE, BC | LOC: M RAD 15:39 | PROVIDERS: ATTEND Physician Assistant | DX: S30.0XXA Contusion of lower back and pelvis, initial encounter (principal) ==

== ENCOUNTER → 2023-03-19 | Outpatient (CLI) | payer MEDICARE, BC ==
[~2023-03-19] MED LIST changes: +CLOP75TA99 PO; -PLAV1TAB2 PO
== END ==
LOC: M LAB 15:37
PROVIDERS: ATTEND Internal Medicine
DX: R07.89 Other chest pain (principal)